=== PATIENT | male | born 1945 | race Caucasian/White ===

== ENCOUNTER 2022-03-28 04:28 | Inpatient (IN) ==
[2022-03-28] MEDS ORDERED: ONDANSETRON INJ 2 MG/ML 2 ML VIAL IV STA (04:45)
[2022-03-28] MEDS ORDERED: SODIUM CHLORIDE 0.9% 1000ML 1,000 ML IV SCH (04:45)
[2022-03-28] MEDS ORDERED: MoRPHine SULFATE 4 MG/ML 1 ML CARP\\VIAL IV PRN (05:17)
[2022-03-28 05:21] LABS: Basophils # (auto) 0.01 K/uL (0-0.2); Basophils % (auto) 0.1 %; Eosinophils # (auto) 0.01 K/uL (0-0.50); Eosinophils % (auto) 0.1 %; Hematocrit (blood only) 36.9 % (40.1-51.0); Hemoglobin 12.4 g/dl (14.0-18.0); Immature Granulocytes # (auto) 0.03 K/uL (0.00-0.02); Immature Granulocytes % (auto) 0.3 %; Lymphocytes # (auto) 0.74 K/uL (1.2-3.4); Lymphocytes % (auto) 7.7 %; Mean Corpuscular Hemoglobin 32.2 pg (25.0-34.0); Mean Corpuscular Hgb Conc 33.6 g/dL (32.0-36.0); Mean Corpuscular Volume 95.8 fL (80.0-100.0); Mean Platelet Volume 8.9 fL (9.4-12.4); Monocytes # (auto) 0.39 K/uL (0.24-0.82); Neutrophils # (auto) 8.45 K/uL (1.4-6.5); Neutrophils % (auto) 87.8 %; Platelet Count 229 K/uL (130-400); RDW Coefficient of Variation 13.3 % (11.5-14.5); RDW Standard Deviation 46.8 fL (36.4-46.3); Red Blood Count 3.85 M/uL (4.63-6.08); White Blood Count 9.63 K/ul (4.8-10.8)
--- NOTE | 2022-03-28 05:32 | Emergency Department Note ---
History of Present Illness General Chief complaint: Vomiting Stated complaint: NAUSEA,VOMITING,ABD PAIN Time Seen by Provider: 03/28/22 04:39 History of Present Illness Maximum Pain Intensity: 7 This is a 76-year-old male presenting to the emergency department for evaluation of nausea, vomiting, and abdominal pain. The patient is visiting locally for a high school reunion, and lives in [place]. The patient initially was planning to leave to go back home in a few hours, but has had 4 or 5 episodes of emesis. He has some central abdominal cramping. He does have a history of 2 abdominal hernias that were repaired surgically. No diarrhea. He does have a history of lung cancer and is not currently on radiation or chemotherapy. He rates his current discomfort a 7/10, dull, and nonradiating. He has not had fevers or chills. No other complaints. Home Medications Medication Instructions Recorded Confirmed Type celecoxib 100 mg capsule 100 mg PO DAILY 03/28/22 03/28/22 History esomeprazole magnesium 20 mg 20 mg PO DAILY 03/28/22 03/28/22 History capsule,delayed release (Nexium) hydrochlorothiazide 12.5 mg tablet 12.5 mg PO DAILY 03/28/22 03/28/22 History levothyroxine 25 mcg tablet 25 mcg PO DAILY 03/28/22 03/28/22 History mupirocin 2 % topical ointment 1 applic topical USEASDIRECTD PRN 03/28/22 03/28/22 History Outbreak nebivolol 10 mg tablet 10 mg PO DAILY 03/28/22 03/28/22 History olmesartan 40 mg tablet 40 mg PO DAILY 03/28/22 03/28/22 History Allergies Allergy/AdvReac Type Severity Reaction Status Date / Time No Known Allergies Allergy Unverified 03/28/22 07:51 Past Med/Surg History Medical History Lung cancer Port-A-Cath in place Surgical History S/P hernia surgery Social History Smoking Status: Never smoker Second Hand Exposure: No; Do You Dip or Chew Tobacco: No; Tobacco Cessation Education Requested by Patient: No Hx Alcohol Use: No Hx Substance Use: No Preferred Language: Czech Communication Ability: Effective 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 Beliefs That Will Affect Care: None Current Living Situation: Alone Other Information That Helps Us Care for You: No Feels Safe at Home: Yes Safety Concerns: Feels Safe At This Time Review of Systems A total of 10 systems reviewed and were otherwise negative Physical Exam Vital Signs Vital Signs - 24 hr 03/28/22 04:30 03/28/22 06:26 03/28/22 06:27 Temperature 36.7 C Temperature Source Temporal Artery Scan Pulse Rate 80 Pulse Rate [Finger] 64 Respiratory Rate 20 18 Respiratory Effort / Characteristics Non-Labored Spontaneous Non-Labored Spontaneous Respiratory Depth Normal Blood Pressure 124/83 Blood Pressure [Right Arm] 118/71 Blood Pressure Mean 96 Blood Pressure Mean [Right Arm] 86 Blood Pressure Position Sitting Blood Pressure Position [Right Arm] Pulse Oximetry 97 95 96 Oxygen Delivery Method Room Air Room Air Room Air Sepsis Recent Fever Within 48 Hours No Sepsis New/Unexplained Change in Mental Status N/A Sepsis Action Taken by Nursing No Action Required 03/28/22 08:20 Temperature Temperature Source Pulse Rate Pulse Rate [Finger] 77 Respiratory Rate 18 Respiratory Effort / Characteristics Respiratory Depth Blood Pressure Blood Pressure [Right Arm] 124/76 Blood Pressure Mean Blood Pressure Mean [Right Arm] 92 Blood Pressure Position Blood Pressure Position [Right Arm] Sitting Pulse Oximetry 98 Oxygen Delivery Method Room Air Sepsis Recent Fever Within 48 Hours Sepsis New/Unexplained Change in Mental Status Sepsis Action Taken by Nursing VITALS: Vitals are noted on the nurse's note and reviewed by myself. Vital signs stable. GENERAL: Well-developed, well-nourished, white male, who is mildly uncomfortable appearing but overall cooperative. HEAD: Normocephalic atraumatic. NECK: Supple without nuchal rigidity. No lymphadenopathy. No thyromegaly. C ervical spine is nontender. HEART: Regular rate and rhythm without murmurs gallops or rubs. LUNGS: Clear to auscultation bilaterally without wheezes, rales or rhonchi. No retractions or accessory muscle use. ABDOMEN: Positive normal bowel sounds x 4. Soft, nontender, without masses or organomegaly. No guarding or rebound tenderness. MUSCULOSKELETAL: No muscle atrophy, erythema, or edema noted. Full range of motion in all extremities. Course Administered Medications Enoxaparin Sodium (Enoxaparin Inj 40 Mg/0.4 Ml Syr) 40 mg SQ Q24H ASH Stop: 04/27/22 11:59 Last Admin: 03/28/22 12:42 Dose: 40 mg Documented By: CIPRIANO Lactated Ringer's (Lr) 1,000 mls @ 125 mls/hr IV .Q8H ASH Stop: 03/29/22 11:16 Last Admin: 03/28/22 20:59 Dose: 125 mls/hr Documented By: Infusion: 03/28/22 20:06 Dose: 125 mls/hr Documented By: Admin: 03/28/22 12:06 Dose: 125 mls/hr Documented By: UCHE Pantoprazole Sodium 40 mg/ (Syringe) 10 mls @ 5 mls/min IV DAILY@1100 [facility] Stop: 04/27/22 15:09 Last Admin: 03/28/22 17:14 Dose: 5 mls/min Documented By: JUSTIN Levothyroxine Sodium (Levothyroxine Sodium 25 Mcg Tablet) 25 mcg PO DAILY [facility] Stop: 04/27/22 11:16 Last Admin: 03/28/22 12:43 Dose: 25 mcg Documented By: CIPRIANO Morphine Sulfate (Morphine Sulfate 4 Mg/Ml 1 Ml Carp\Vial) 2 mg IV Q4H PRN PRN Reason: Severe Pain (7,8,9,10) on NRS Stop: 04/11/22 11:16 Last Admin: 03/28/22 13:58 Dose: 2 mg Documented By: UCHE Ondansetron HCl (Ondansetron Inj 2 Mg/Ml 2 Ml Vial) 4 mg IV Q6H PRN PRN Reason: Nausea Stop: 04/27/22 11:16 Last Admin: 03/28/22 20:03 Dose: 4 mg Documented By: Admin: 03/28/22 13:58 Dose: 4 mg Documented By: UCHE Discontinued Medications Sodium Chloride (Nss 1000ml) 1,000 mls @ 999 mls/hr IV .Q1H1M ASH Stop: 03/28/22 05:45 Last Infusion: 03/28/22 06:53 Dose: 0 mls/hr Documented By: Admin: 03/28/22 05:52 Dose: 999 mls/hr Documented By: SINDY Morphine Sulfate (Morphine Sulfate 4 Mg/Ml 1 Ml Carp\Vial) 4 mg IV Q30M PRN PRN Reason: Pain Stop: 04/11/22 05:16 Last Admin: 03/28/22 07:50 Dose: 4 mg Documented By: UCHE Morphine Sulfate (Morphine Sulfate 2 Mg/Ml Carp) Confirm Administered Dose 2 mg .ROUTE .STK-MED ONE Stop: 03/28/22 13:58 Last Admin: 03/28/22 19:35 Dose: Not Given Documented By: JENNIFER Ondansetron HCl (Ondansetron Inj 2 Mg/Ml 2 Ml Vial) 4 mg IV NOW STA Stop: 03/28/22 04:46 Last Admin: 03/28/22 05:51 Dose: 4 mg Documented By: SINDY Medical Decision Making Differential Diagnosis Differential diagnosis: Etiologies such as gastroenteritis, food borne illness, infections, appendicitis, diverticulitis, inflammatory bowel disease, obstruction, GI bleed, biliary pathology, cardiac process, intracranial process, as well as others were entertained. Laboratory Data Result diagrams: 03/28/22 05:10 03/28/22 05:10 Lab Results 03/28/22 03/28/22 03/28/22 Range/Units 05:10 05:10 06:13 WBC 9.63 (4.8-10.8) K/ul RBC 3.85 L (4.63-6.08) M/uL Hgb 12.4 L (14.0-18.0) g/dl Hct 36.9 L (40.1-51.0) % MCV 95.8 (80.0-100.0) fL MCH 32.2 (25.0-34.0) pg MCHC 33.6 (32.0-36.0) g/dL RDW Std Deviation 46.8 H (36.4-46.3) fL RDW Coeff of Arleth 13.3 (11.5-14.5) % Plt Count 229 (130-400) K/uL MPV 8.9 L (9.4-12.4) fL Immature Gran % (Auto) 0.3 % Neut % (Auto) 87.8 % Lymph % (Auto) 7.7 % Overton % (Auto) 4.0 % Eos % (Auto) 0.1 % Baso % (Auto) 0.1 % Neut # (Auto) 8.45 H (1.4-6.5) K/uL Lymph # (Auto) 0.74 L (1.2-3.4) K/uL Overton # (Auto) 0.39 (0.24-0.82) K/uL Eos # (Auto) 0.01 (0-0.50) K/uL Baso # (Auto) 0.01 (0-0.2) K/uL Immature Gran # (Auto) 0.03 H (0.00-0.02) K/uL Sodium 135 L (136-145) mmol/L Potassium 4.2 (3.5-5.1) mmol/L Chloride 98 (98-107) mmol/L Carbon Dioxide 29 (21-32) mmol/L Anion Gap 8 (3-11) BUN 27 H (6-23) mg/dl Creatinine 1.34 (0.6-1.4) mg/dl Est Cr Clr Drug Dosing 46.9 ml/min Est GFR ( Amer) 58.4 ml/min Est GFR (Non-Af Amer) 50.4 ml/min BUN/Creatinine Ratio 20.1 H (10-20) Glucose 126 H (70-99(Fasting)) mg/dl Calcium 9.4 (8.5-10.1) mg/dl Total Bilirubin 0.7 (0.2-1.0) mg/dl AST 20 (13-39) U/L ALT 13 (7-52) U/L Alkaline Phosphatase 71 (34-104) U/L Total Protein 6.6 (6.0-8.3) gm/dl Albumin 3.9 (3.4-5.0) gm/dl Globulin 2.7 (2.5-4.0) gm/dl Albumin/Globulin Ratio 1.4 (0.9-2) Lipase 51 (11-82) U/L SARS-CoV-2, RNA, NAAT NEGATIVE (NEGATIVE) Imaging Data Radiologist's Impression: Abdomen/Pelvis CT 03/28/22 04:45 CT abd pelvis wo con CLINICAL HISTORY: N/V/Abd pain. Hx lung ca. TECHNIQUE: Helical axial images of the abdomen and pelvis were obtained. Automated dose lowering techniques and/or adjustment according to patient size were utilized for this exam. This exam was performed without intravenous contrast. CT DOSE: 650.40 mGy.cm COMPARISON: None available at the time of this dictation. FINDINGS: Lower chest: Bibasilar atelectasis versus scarring is seen. Atherosclerotic disease is seen. Liver: Calcified granulomata are seen. Gallbladder and biliary tree: No calcified gallstones. Normal caliber wall. No intra- or extrahepatic biliary ductal dilation. Pancreas: Unremarkable, no focal lesions. Spleen: Calcifications are noted in the spleen compatible with prior granulomatous disease. Adrenals: Unremarkable. Kidneys and ureters: Unremarkable. Bladder: Unremarkable. Reproductive organs: Prostatic calcifications are seen which may represent prior hemorrhage or granulomatous disease. Bowel: Diverticulosis is seen without evidence of diverticulitis. Of stool contents remain. A hiatal hernia is seen. There are a few loops of dilated small bowel with wall thickening and surrounding fat stranding and vascular engorgement. Proximal and distal transition points are seen in the left lower quadrant and right lower quadrant, respectively, without a vascular swirl. The appendix is normal. Lymph nodes Retroperitoneal: Unremarkable. Pelvic: Unremarkable. Mesenteric: Unremarkable. Peritoneum: Normal. Vessels: Atherosclerotic calcifications are seen. Abdominal wall: A fat-containing umbilical hernia is seen. Metallic densities are seen throughout the abdomen. Bones: Degenerative changes in the visualized spine. IMPRESSION: Findings are compatible with small bowel obstruction. Bowel gas and some colonic gas remains. No evidence of perforation. Proximal and distal transition points are noted. ACT 112: Negative or not required by law. Electronically signed by: Wellington Pinzon M.D. 03/28/2022 7:32 AM MDM Narrative Physical exam and history were performed. Nursing notes, EMR, and Medication List were personally reviewed. Patient appears to have nausea and vomiting symptoms bringing him to the ER. The patient does have some generalized abdominal pain as well. IV access was established and labs were obtained. He was hydrated normal saline and given IV morphine and IV Zofran for comfort. Patient was taken to CT scan for further evaluation of symptoms. Patient's blood work is as above and was reviewed. He does not have a significantly elevated white blood cell count, gross anemia, bandemia, or significant electrolyte imbalance. Lipase and transaminases are not diagnostic. CT scan did return as above and does show a small bowel obstruction. NG tube was ordered. Patient was updated on his findings and does not seem well for discharge. I did reach out to the on-call surgical and hospitalist teams. Please see their dictations for further patient course, plan, disposition. The chart was completed utilizing Dragon Speech Voice Recognition Software. Grammatical errors, random word insertions, pronoun errors, and incomplete sentences are an occasional consequence of this system due to software limitations, ambient noise, and hardware issues. Any formal questions or concerns about the content, text, or information contained within the body of this dictation should be directly addressed to the provider for clarification. . Impression & Plan Small bowel obstruction, Nausea and vomiting Discharge Plan Visit Data Chief Complaint: Vomiting Stated Complaint: NAUSEA,VOMITING,ABD PAIN ED Provider: Chantale Hinton ED Midlevel Provider: Eliezer Castro Discharge Problem: Small bowel obstruction, Nausea and vomiting Patient Disposition: Admitted As Inpatient Discharge Instructions Interventions: ED Discharge Assessment Last Done: 03/28/22 11:16
[2022-03-28 05:48] LABS: Albumin Globulin Ratio 1.4 (0.9-2); Albumin Level 3.9 gm/dl (3.4-5.0); BUN Creatinine Ratio 20.1 (10-20); Bilirubin,Total 0.7 mg/dl (0.2-1.0); Calcium 9.4 mg/dl (8.5-10.1); Creatinine Clr Calc Pharmacy 46.9 ml/min; Est GFR (African American) 58.4 ml/min; Est GFR (Non-African American) 50.4 ml/min; Globulin 2.7 gm/dl (2.5-4.0); Potassium 4.2 mmol/L (3.5-5.1); Total Protein 6.6 gm/dl (6.0-8.3)
--- NOTE | 2022-03-28 07:34 | CT Scan Report ---
CT abd pelvis wo con CLINICAL HISTORY: N/V/Abd pain. Hx lung ca. TECHNIQUE: Helical axial images of the abdomen and pelvis were obtained. Automated dose lowering tech niques and/or adjustment according to patient size were utilized for this exam. This exam was perfor med without intravenous contrast. CT DOSE: 650.40 mGy.cm COMPARISON: None available at the time of this dictation. FINDINGS: Lower chest: Bibasilar atelectasis versus scarring is seen. Atherosclerotic disease is seen. Liver: Calcified granulomata are seen. Gallbladder and biliary tree: No calcified gallstones. Normal caliber wall. No intra- or extrahepatic biliary ductal dilation. Pancreas: Unremarkable, no focal lesions. Spleen: Calcifications are noted in the spleen compatible with prior granulomatous disease. Adrenals: Unremarkable. Kidneys and ureters: Unremarkable. Bladder: Unremarkable. Reproductive organs: Prostatic calcifications are seen which may represent prior hemorrhage or granul omatous disease. Bowel: Diverticulosis is seen without evidence of diverticulitis. Of stool contents remain. A hiatal hernia is seen. There are a few loops of dilated small bowel with wall thickening and surrounding fa t stranding and vascular engorgement. Proximal and distal transition points are seen in the left lowe r quadrant and right lower quadrant, respectively, without a vascular swirl. The appendix is normal. Lymph nodes Retroperitoneal: Unremarkable. Pelvic: Unremarkable. Mesenteric: Unremarkable. Peritoneum: Normal. Vessels: Atherosclerotic calcifications are seen. Abdominal wall: A fat-containing umbilical hernia is seen. Metallic densities are seen throughout the abdomen. Bones: Degenerative changes in the visualized spine. IMPRESSION: Findings are compatible with small bowel obstruction. Bowel gas and some colonic gas remains. No evid ence of perforation. Proximal and distal transition points are noted. ACT 112: Negative or not required by law. Electronically signed by: Wellington Pinzon M.D. 03/28/2022 7:32 AM
--- NOTE | 2022-03-28 08:42 | History & Physical Report ---
Date of Service March 28, 2022 Assessment & Plan (1) Small bowel obstruction: Plan: Eliezer is a 76-year-old male with a past medical history of metastatic melanoma with mets to lung undergoing monthly immunotherapy treatment with last treatment March 20 and no history of radiation who presents with 1 day of acute abdominal pain and CT indicating small bowel obstruction. He has a history of 2 prior abdominal hernia surgery repairs. No history of appendectomy or cholecystectomy. Symptoms are improved at bedside assessment with antiemetics and analgesics. Small bowel obstruction - Surgical history of 2 abdominal hernias repaired surgically. No hx of katrin/ap py. - CT-A/P: IMPRESSION: Findings are compatible with small bowel obstruction. Bowel gas and some colonic gas remains. No evidence of perforation. Proximal and distal transition points are noted. Insert NGT, placed to LIS N.p.o. Morphine, Zofran for pain and nausea control Follow clinically Surgery consulted, goal management for now Metastatic melanoma Mets to lung, patient undergoing targeted immunotherapy monthly. Last treatment March 20 Lungs clear on admission Reports he has been tolerating the immunotherapy well [place], records not currently available Follow, stable, no acute intervention anticipated Hypertension Nebivolol held while n.p.o., hydrochlorothiazide, olmesartan held while n.p.o. Metoprolol tartrate 5 mg IV every 6 hours as needed placed for beta-troy withdrawal/hypertension as needed Needs hydralazine 5 mg every 6 hours IV as needed as needed for additional hypertension, second line to initial metoprolol dose GERD Hold Nexium Metoprolol IV daily while n.p.o. Hypothyroidism Recent since radiation, but reports suspected side effect of his immunotherapy Hold Synthroid, if p.o. not improving within 72 hours resume at 70% dose via IV TSH pending DVT prophylaxis: Lovenox Disposition: Medical surgical Diet: N.p.o. CODE STATUS: Surrogate DM would be Son Shaan Decker. [phone]. Full Code. (2) Total knee replacement status: (3) Lung metastases: (4) Melanoma: (5) Port-A-Cath in place: (6) Lung cancer: History of Present Illness Primary Care Provider: NO PCP Eliezer is a 76-year-old male with a past medical history of lung cancer who presented to the emergency department for nausea/vomiting/abdominal pain. He lives in [place], was visiting locally for a high school reunion. Developed repeated episodes of pain and nonbloody emesis without diarrhea, and presented for evaluation. Is found to have a bowel obstruction. 2pm yesterday ab pain which progressively worsened overnight. THis am started vomiting several times, light yellow no blood. Maybe a little pink with last wretching. Pain is improved with morphine. Pain in the worse in the central abdomen, no history of SBO or similar symptoms. 3/10 now, 7-8/10 and sharp coming in. No flatus, feels like he wants to pass gas but cant and stomach is stretched but nothing is moving. 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 Started immunotherapy avivo last June. Last treatment was March 20-. Gets monthly. No radiation hx. Hx HTN, hypothyroid, GERD Surgical history of 2 abdominal hernias repaired surgically. Knee R TKA. L Foot surgery. Laminectomy 1994 for back pain, worked well. No hx of katrin/appy. CT-A/P: IMPRESSION: Findings are compatible with small bowel obstruction. Bowel gas and some colonic gas remains. No evidence of perforation. Proximal and distal transition points are noted. Medical History: Reviewed Medications: Reviewed. HTN Surgical History: Reviewed Allergies: Reviewed. NKDA Social History: Hx cigarette use 45 years ago. EtoH 2-3 days a week, 1-2 in a sitting. No MM. Code Status: Surrogate DM would be Son Shaan Decker. [phone]. Full Code. Allergies Allergy/AdvReac Type Severity Reaction Status Date / Time No Known Allergies Allergy Unverified 03/28/22 07:51 Home Medications Medication Instructions Recorded Confirmed Type celecoxib 100 mg capsule 100 mg PO DAILY 03/28/22 03/28/22 History esomeprazole magnesium 20 mg 20 mg PO DAILY 03/28/22 03/28/22 History capsule,delayed release (Nexium) hydrochlorothiazide 12.5 mg tablet 12.5 mg PO DAILY 03/28/22 03/28/22 History levothyroxine 25 mcg tablet 25 mcg PO DAILY 03/28/22 03/28/22 History mupirocin 2 % topical ointment 1 applic topical USEASDIRECTD PRN 03/28/22 03/28/22 History Outbreak nebivolol 10 mg tablet 10 mg PO DAILY 03/28/22 03/28/22 History olmesartan 40 mg tablet 40 mg PO DAILY 03/28/22 03/28/22 History Past Med/Surg History Medical History Lung cancer Port-A-Cath in place Surgical History S/P hernia surgery Social History Smoking Status: Never smoker Second Hand Exposure: No; Do You Dip or Chew Tobacco: No; Tobacco Cessation Education Requested by Patient: No Hx Alcohol Use: No Hx Substance Use: No Preferred Language: Nigerian Communication Ability: Effective Medical Laboratory Assistant Required: No Beliefs That Will Affect Care: None Current Living Situation: Alone Other Information That Helps Us Care for You: No Feels Safe at Home: Yes Safety Concerns: Feels Safe At This Time Review of Systems Review of Systems: All systems reviewed & are unremarkable except as noted in Subjective Physical Exam Physical Exam: General: A&Ox3. NAD. Cooperative. HEENT: Atraumatic, normocephalic. Vision and hearing intact grossly. Pupils equal and reactive to light. Pulm: CTAB A&P. -wheezes, -rales, -rhonchi. Symmetrical chest rise. No increase in work of breathing. No respiratory distress. Cardiac: RRR, systolic murmur is present. Radial pulses intact and symmetrical. Abdominal: Abdomen mildly tender in the center, slightly tender in left center. No radiation, no rebound, nonrigid. Bowel sounds diminished. Results & Data Results & Data ([facility]) Vital Signs (Past 12 Hours) Vital Signs Temp Pulse Pulse Resp BP BP Pulse Ox 03/28/22 06:27 96 03/28/22 06:26 64 18 118/71 95 03/28/22 04:30 36.7 C 80 20 124/83 97 O2 Del Method 03/28/22 06:27 Room Air 03/28/22 06:26 Room Air 03/28/22 04:30 Room Air PG Care Time/CCT Total # of Minutes Spent Total Time Spent with Patient: Total time spent is greater than 50% in coordination of care (as documented) at patient's floor/unit and/or counseling patient: Coding Level of Care Code 74671 Initial Inpt Care Lvl 2 Diagnoses Small bowel obstruction K56.609 Total knee replacement status Z96.659 Lung metastases C78.00 Melanoma C43.9 Port-A-Cath in place Z95.828 Lung cancer C34.90
[2022-03-28] MEDS ORDERED: METOPROLOL TARTRATE 1 MG/ML VIAL IV PRN (11:17)
[2022-03-28] MEDS ORDERED: MoRPHine SULFATE 2 MG/ML CARP IV PRN (11:17)
[2022-03-28] MEDS: LACTATED RINGER'S 1,000 ML IV SCH ×2 (12:06→20:59)
--- NOTE | 2022-03-28 12:22 | Surgery Consultation ---
Date of Consultation March 28, 2022 Assessment & Plan (1) Small bowel obstruction: pt is a 76 year-old male who presents with one day history abdominal pain, IMP: SBO, Plan, agree with medicine team admit pt to hospital no emergent surgery indication now, conservative treatment, NPO, IV fluid, control pain, repeat labs and KUB in morning, will F/U, pt agrees with the plan, I answered all questions, History of Present Illness Reason for Consultation: SBO Requesting Physician: MD Leeanna Attending Physician: Lloyd Ji MD History of Present Illness CC: abdominal pain HPI: Eliezer is a 76-year-old male with a past medical history of lung cancer who presented to the emergency department for nausea/vomiting/abdominal pain. He lives in [place], was visiting locally for a high school reunion. Developed repeated episodes of pain and nonbloody emesis without diarrhea, and presented for evaluation. Is found to have a bowel obstruction. 2pm yesterday ab pain which progressively worsened overnight. THis am started vomiting several times, light yellow no blood. Maybe a little pink with last wretching. Pain is improved with morphine. Pain in the worse in the central abdomen, no history of SBO or similar symptoms. 3/10 now, 7-8/10 and sharp coming in. No flatus, feels like he wants to pass gas but cant and stomach is stretched but nothing is moving. 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 Started immunotherapy avivo last June. Last treatment was March 20-. Gets monthly. No radiation hx. Hx HTN, hypothyroid, GERD Surgical history of 2 abdominal hernias repaired surgically. Knee R TKA. L Foot surgery. Laminectomy 1994 for back pain, worked well. No hx of katrin/appy. CT-A/P: IMPRESSION: Findings are compatible with small bowel obstruction. Bowel gas and some colonic gas remains. No evidence of perforation. Proximal and distal transition points are noted. Medical History: Reviewed Medications: Reviewed. HTN Surgical History: Reviewed Allergies: Reviewed. NKDA Social History: Hx cigarette use 45 years ago. EtoH 2-3 days a week, 1-2 in a sitting. No MM. Code Status: Surrogate DM would be Son Shaan Decker. [phone]. Full Code. I ( Malick Leung MD ) got a call for consult SBO, I reviewed pt's H/P, labs, CT scan with pt, last BM yesterday, Allergies Allergy/AdvReac Type Severity Reaction Status Date / Time No Known Allergies Allergy Unverified 03/28/22 07:51 Home Medications Medication Instructions Recorded Confirmed Type celecoxib 100 mg capsule 100 mg PO DAILY 03/28/22 03/28/22 Histor y esomeprazole magnesium 20 mg 20 mg PO DAILY 03/28/22 03/28/22 Hi story capsule,delayed release (Nexium) hydrochlorothiazide 12.5 mg tablet 12.5 mg PO DAILY 03/28/2203/28 History levothyroxine 25 mcg tablet 25 mcg PO DAILY 03/28/22 03/28/22 His tory mupirocin 2 % topical ointment 1 applic topical USEASDIRECTD PRN 03/28/22 03/28/22 History Outbreak nebivolol 10 mg tablet 10 mg PO DAILY 03/28/22 03/28/22 History olmesartan 40 mg tablet 40 mg PO DAILY 03/28/22 03/28/22 History Past Med/Surg History Medical History(Updated 03/28/22 @ 08:53 by Lloyd Ji MD) Lung cancer Port-A-Cath in place Surgical History S/P hernia surgery Social History Smoking Status: Former smoker Feels Safe at Home: Yes Allergies Allergy/AdvReac Type Severity Reaction Status Date / Time No Known Allergies Allergy Unverified 03/28/22 07:51 Home Medications Medication Instructions Recorded Confirmed Type celecoxib 100 mg capsule 100 mg PO DAILY 03/28/22 03/28/22 History esomeprazole magnesium 20 mg 20 mg PO DAILY 03/28/22 03/28/22 History capsule,delayed release (Nexium) hydrochlorothiazide 12.5 mg tablet 12.5 mg PO DAILY 03/28/22 03/28/22 History levothyroxine 25 mcg tablet 25 mcg PO DAILY 03/28/22 03/28/22 History mupirocin 2 % topical ointment 1 applic topical USEASDIRECTD PRN 03/28/22 03/28/22 History Outbreak nebivolol 10 mg tablet 10 mg PO DAILY 03/28/22 03/28/22 History olmesartan 40 mg tablet 40 mg PO DAILY 03/28/22 03/28/22 History Patient History Medical History Lung cancer Port-A-Cath in place Surgical History S/P hernia surgery Social History Smoking Status: Never smoker Second Hand Exposure: No; Do You Dip or Chew Tobacco: No; Tobacco Cessation Education Requested by Patient: No Hx Alcohol Use: No Hx Substance Use: No Preferred Language: Welsh Communication Ability: Effective 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: No Beliefs That Will Affect Care: None Current Living Situation: Alone Other Information That Helps Us Care for You: No Feels Safe at Home: Yes Safety Concerns: Feels Safe At This Time Review of Systems Constitutional: as per Subjective / HPI Eyes: as per Subjective / HPI Respiratory: as per Subjective / HPI lung cancer Cardiovascular: as per Subjective / HPI Gastrointestinal: laparoscopic repair bilateral inguinal hernia, 2 years ago Musculoskeletal: as per Subjective / HPI Neurologic: as per Subjective / HPI Psychiatric: as per Subjective / HPI Endocrine: as per Subjective / HPI Hematologic / Lymphatic: as per Subjective / HPI Physical Exam Constitutional: WD/WN, vitals as above Eyes: PERRL, conjunctivae normal, anicteric sclerae Neck: trachea midline, no thyromegaly Respiratory: normal respiratory effort, lungs clear to auscultation Cardiovascular: RRR, no murmur, no edema Gastrointestinal (Abdomen): soft, mild tenderness at lower abdomen, no rebound pain, no distend, BS + Musculoskeletal: no cyanosis or clubbing, extremities motor strength 5/5 Neurologic: patellar DTR's 2+ bilat, sensation intact Psychiatric: A+Ox3, euthymic affect Results & Data ([facility]) Vital Signs (Past 12 Hours) Vital Signs Temp Pulse Pulse Resp BP BP Pulse Ox 03/28/22 11:34 36.5 C 61 15 115/70 96 03/28/22 11:00 77 18 115/76 98 03/28/22 10:00 88 20 122/76 98 08/09/22 08:20 77 18 124/76 98 03/28/22 06:27 96 03/28/22 06:26 64 18 118/71 95 03/28/22 04:30 36.7 C 80 20 124/83 97 O2 Del Method 03/28/22 11:34 Room Air 03/28/22 11:00 Room Air 03/28/22 10:00 Room Air 03/28/22 08:20 Room Air 03/28/22 06:27 Room Air 03/28/22 06:26 Room Air 03/28/22 04:30 Room Air Laboratory Results Abnormal lab results 03/28/22 03/28/22 Range/Units 05:10 05:10 RBC 3.85 L (4.63-6.08) M/uL Hgb 12.4 L (14.0-18.0) g/dl Hct 36.9 L (40.1-51.0) % RDW Std Deviation 46.8 H (36.4-46.3) fL MPV 8.9 L (9.4-12.4) fL Neut # (Auto) 8.45 H (1.4-6.5) K/uL Lymph # (Auto) 0.74 L (1.2-3.4) K/uL Immature Gran # (Auto) 0.03 H (0.00-0.02) K/uL Sodium 135 L (136-145) mmol/L BUN 27 H (6-23) mg/dl BUN/Creatinine Ratio 20.1 H (10-20) Glucose 126 H (70-99(Fasting)) mg/dl Diagnostic Findings CT abd pelvis wo con CLINICAL HISTORY: N/V/Abd pain. Hx lung ca. TECHNIQUE: Helical axial images of the abdomen and pelvis were obtained. Automated dose lowering techniques and/or adjustment according to patient size were utilized for this exam. This exam was performed without intravenous contrast. CT DOSE: 650.40 mGy.cm COMPARISON: None available at the time of this dictation. FINDINGS: Lower chest: Bibasilar atelectasis versus scarring is seen. Atherosclerotic disease is seen. Liver: Calcified granulomata are seen. Gallbladder and biliary tree: No calcified gallstones. Normal caliber wall. No intra- or extrahepatic biliary ductal dilation. Pancreas: Unremarkable, no focal lesions. Spleen: Calcifications are noted in the spleen compatible with prior granulomato us disease. Adrenals: Unremarkable. Kidneys and ureters: Unremarkable. Bladder: Unremarkable. Reproductive organs: Prostatic calcifications are seen which may represent prior hemorrhage or granulomatous disease. Bowel: Diverticulosis is seen without evidence of diverticulitis. Of stool contents remain. A hiatal hernia is seen. There are a few loops of dilated small bowel with wall thickening and surrounding fat stranding and vascular engorgement. Proximal and distal transition points are seen in the left lower quadrant and right lower quadrant, respectively, without a vascular swirl. The appendix is normal. Lymph nodes Retroperitoneal: Unremarkable. Pelvic: Unremarkable. Mesenteric: Unremarkable. Peritoneum: Normal. Vessels: Atherosclerotic calcifications are seen. Abdominal wall: A fat-containing umbilical hernia is seen. Metallic densities are seen throughout the abdomen. Bones: Degenerative changes in the visualized spine. IMPRESSION: Findings are compatible with small bowel obstruction. Bowel gas and some colonic gas remains. No evidence of perforation. Proximal and distal transition points are noted. ACT 112: Negative or not required by law.
[2022-03-28] MEDS: ENOXAPARIN INJ 40 MG/0.4 ML SYR SQ SCH (12:42)
[2022-03-28] MEDS: LEVOTHYROXINE SODIUM 25 MCG TABLET PO SCH (12:43)
[2022-03-28] MEDS ORDERED: MoRPHine SULFATE 2 MG/ML CARP ONE (13:57)
[2022-03-28] MEDS: ONDANSETRON INJ 2 MG/ML 2 ML VIAL IV PRN ×2 (13:58→20:03)
[2022-03-28] MEDS: MoRPHine SULFATE 4 MG/ML 1 ML CARP\\VIAL IV PRN (13:58)
[2022-03-28] MEDS ORDERED: hydrALAZINE HCL 20 MG/ML VIAL IV PRN (15:06)
--- NOTE | 2022-03-28 16:20 | XRay Report ---
XR KUB/Abdomen 1 view CLINICAL HISTORY: NGT PLACEMENT BEDSIDE. COMPARISON STUDY: No previous studies for comparison. TECHNIQUE: Single view of the chest and upper abdomen. FINDINGS: The bowel gas pattern is within normal limits without evidence for dilatation or obstruction. NG tube is in place with its tip extending just past the GE junction and into the gastric fundus. It should be further advanced. There is no evidence for organomegaly or gross intra-abdominal mass. No abnormal calcifications are seen along the course of the urinary tracts bilaterally. No acute osseous patholo gy. There is a decreased inspiratory effort with elevation of the hemidiaphragms and crowding of the bron chovascular markings at the lung bases and centrally. IMPRESSION: 1. No acute intra-abdominal abnormality. 2. Status post NG tube placement as described. ACT 112: Negative or not required by law. Electronically signed by: Solomon Toledo M.D. 03/28/2022 4:18 PM
--- NOTE | 2022-03-28 16:57 | XRay Report ---
XR KUB/Abdomen 1 view CLINICAL HISTORY: NGT placement confirmation. COMPARISON STUDY: 03/28/2022 TECHNIQUE: Single view of the upper abdomen abdomen. FINDINGS: The bowel gas pattern is within normal limits without evidence for dilatation or obstruction. There a re air-filled loops of small bowel present. NG tube has been advanced so that its tip is now curled w ithin the upper body of the stomach. There is no evidence for organomegaly or gross intra-abdominal m ass. No abnormal calcifications are seen along the course of the urinary tracts bilaterally. No acute osseous pathology. IMPRESSION: 1. Air-filled loops of small bowel throughout the abdomen. 2. Advancement of NG tube. ACT 112: Negative or not required by law. Electronically signed by: Solomon Toledo M.D. 03/28/2022 4:55 PM
[2022-03-28] MEDS: PANTOprazole 40 MG in SYRINGE 0 ML IV SCH (17:14)
[2022-03-28 19:11] LABS: Appearance Urine Clear (Clear); Bilirubin Urine Negative (Negative); Blood Urine Negative (Negative); Color Urine Yellow; Glucose Urine UA Negative (Negative); Ketones Urine Negative (Negative); Leukocyte Esterase Urine Negative (Negative); Nitrite Urine Negative (Negative); Protein Urine Negative (Negative); Specific Gravity Urine 1.022 (1.000-1.030); Urobilinogen Urine Negative (Negative)
[2022-03-29] MEDS ORDERED: CHLORASEPTIC 1.4% SOLN 180 ML BTL MT PRN (04:41)
[2022-03-29] MEDS: LACTATED RINGER'S 1,000 ML IV SCH ×2 (05:13→17:35)
--- NOTE | 2022-03-29 06:00 | Electrocardiogram Report ---
Test Reason : Blood Pressure : / mmHG Vent. Rate : 060 BPM Atrial Rate : 060 BPM P-R Int : 198 ms QRS Dur : 094 ms QT Int : 416 ms P-R-T Axes : 045 006 032 degrees QTc Int : 416 ms Normal sinus rhythm Cannot rule out Anterior infarct , age undetermined Abnormal ECG No previous ECGs available Confirmed by Ko Dalton ([id number]) on 03/29/2022 6:00:03 AM Referred By: REFERRED SELF Confirmed By:Ko Dalton
[2022-03-29] MEDS: ONDANSETRON INJ 2 MG/ML 2 ML VIAL IV PRN (07:36)
[2022-03-29] MEDS: LEVOTHYROXINE SODIUM 25 MCG TABLET PO SCH (07:37)
--- NOTE | 2022-03-29 10:13 | Hospitalist Progress Note ---
Date of Service March 29, 2022 Assessment & Plan (1) Small bowel obstruction: Plan: Eliezer is a 76-year-old male with a past medical history of metastatic melanoma with mets to lung undergoing monthly immunotherapy treatment with last treatment March 20 and no history of radiation who presents with 1 day of acute abdominal pain and CT indicating small bowel obstruction. He has a history of 2 prior abdominal hernia surgery repairs. No history of appendectomy or cholecystectomy. Symptoms are improved at bedside assessment with antiemetics and analgesics. Small bowel obstruction - Surgical history of 2 abdominal hernias repaired surgically. No hx of katrin/a ppy. - CT-A/P: IMPRESSION: Findings are compatible with small bowel obstruction. Bowel gas and some colonic gas remains. No evidence of perforation. Proximal and distal transition points are noted. Continue NG tube to low remittent suction N.p.o. Labs are stable at this time surgery is not planning any intervention procedure check KUB on 03/30/2022 Metastatic melanoma Mets to lung, patient undergoing targeted immunotherapy monthly. Last treatment March 20 Lungs clear on admission Reports he has been tolerating the immunotherapy well [place], [place] not currently [place] Follow, stable, no acute intervention anticipated Hypertension Nebivolol held while n.p.o., hydrochlorothiazide, olmesartan held while n.p.o. Metoprolol tartrate 5 mg IV every 6 hours as needed placed for beta-troy withdrawal/hypertension as needed Needs hydralazine 5 mg every 6 hours IV as needed as needed for additional hypertension, second line to initial metoprolol dose GERD Hold Nexium Metoprolol IV daily while n.p.o. Hypothyroidism Recent since radiation, but reports suspected side effect of his immunotherapy Hold Synthroid, if p.o. not improving within 72 hours resume at 70% dose via IV TSH pending DVT prophylaxis: Lovenox Diet: N.p.o. CODE STATUS: Surrogate DM would be Son Shaan Decker. [phone]. Full Code. Son was updated on the phone 03/29/2022 (2) Total knee replacement status: (3) Lung metastases: (4) Melanoma: (5) Port-A-Cath in place: (6) Lung cancer: Admission and Anticipated Discharge Date Admission Date: March 28, 2022 Subjective Patient states she is doing terrible has crescendo decrescendo abdominal pain and is bothered by his NG tube. He said no nausea or vomiting said no flatus or bowel movement Review of Systems Review of Systems: Mild distress and fatigue no headache, no visual changes no speech or swallowing issues no chest pain, pressure or palpitations no shortness of breath, cough or wheezes Crescendo decrescendo abdominal pain centrally in the abdomen no bowel movement present no vomiting no dysuria, hematuria or frequency no focal joint pain or swelling no back pain, CVA tenderness or radicular pain no bruising, bleeding or rashes no focal signs of weakness or numbness or altered sensation no complaints of anxiety or depression.. Physical Exam Physical Exam: The patient appeared well nourished and normally developed. Vital signs as documented. Head exam is normocephalic atraumatic Neck is without JVD, thyromegaly, or carotid bruits. Lungs are clear to auscultation, no focal loss of breath sounds Cardiac exam, Rhythm is regular.. No murmurs, rubs or gallops. Abdominal exam reveals hyperactive bowel sounds but no tinkling no distention or tympany. does have discomfort to examination Extremities are nonedematous and both pedal pulses are present Neurologic exam is alert and oriented, no focal loss of strength or sensation Skin is without bruises or rashes Psychologically is without concerns for anxiety or depression.. Results & Data Results & Data ([facility]) Vital Signs (Past 12 Hours) Vital Signs Temp Pulse Pulse Resp BP Pulse Ox Pulse Ox 03/29/22 08:02 98.1 F 68 20 113/74 90 03/29/22 06:32 98.8 F 71 18 106/72 91 03/29/22 06:00 96 03/28/22 22:37 98.2 F 70 18 113/75 91 O2 Del Method O2 Del Method 03/29/22 08:02 Room Air 03/29/22 06:32 Room Air 03/29/22 06:00 Room Air 03/28/22 22:37 Room Air PG Care Time/CCT Total # of Minutes Spent Total Time Spent with Patient: Total time spent is greater than 50% in coordination of care (as documented) at patient's floor/unit and/or counseling patient: Coding Level of Care Code 09549 Subseq Hosp Care Lvl 3 Diagnoses Small bowel obstruction K56.609 Total knee replacement status Z96.659 Lung metastases C78.00 Melanoma C43.9 Port-A-Cath in place Z95.828 Lung cancer C34.90
[2022-03-29] MEDS: PANTOprazole 40 MG in SYRINGE 0 ML IV SCH (11:14)
[2022-03-29] MEDS: ENOXAPARIN INJ 40 MG/0.4 ML SYR SQ SCH (11:15)
[2022-03-29 13:06] LABS: Basophils # (auto) 0.01 K/uL (0-0.2); Basophils % (auto) 0.1 %; Eosinophils # (auto) 0.07 K/uL (0-0.50); Eosinophils % (auto) 0.7 %; Hemoglobin 12.1 g/dl (14.0-18.0); Immature Granulocytes # (auto) 0.04 K/uL (0.00-0.02); Immature Granulocytes % (auto) 0.4 %; Lymphocytes # (auto) 0.88 K/uL (1.2-3.4); Lymphocytes % (auto) 8.9 %; Mean Corpuscular Hemoglobin 32.4 pg (25.0-34.0); Mean Corpuscular Hgb Conc 33.6 g/dL (32.0-36.0); Mean Corpuscular Volume 96.3 fL (80.0-100.0); Mean Platelet Volume 9.3 fL (9.4-12.4); Monocytes # (auto) 0.69 K/uL (0.24-0.82); Monocytes % (auto) 6.9 %; Neutrophils # (auto) 8.24 K/uL (1.4-6.5); Platelet Count 229 K/uL (130-400); RDW Coefficient of Variation 13.4 % (11.5-14.5); RDW Standard Deviation 47.8 fL (36.4-46.3); Red Blood Count 3.74 M/uL (4.63-6.08); White Blood Count 9.93 K/ul (4.8-10.8)
[2022-03-29] MEDS ORDERED: HEPARIN 100 UNIT/ML 5ML FLUSH ONE (13:21)
[2022-03-29] MEDS ORDERED: HEPARIN 100 UNIT/ML 5ML FLUSH FLUSH PRN (13:25)
[2022-03-29 13:28] LABS: BUN Creatinine Ratio 16.8 (10-20); Calcium 8.9 mg/dl (8.5-10.1); Est GFR (Non-African American) 51.8 ml/min; Potassium 4.2 mmol/L (3.5-5.1)
[2022-03-29 13:47] LABS: Thyroid Stimulating Hormone 10.632 uIu/ml (0.300-4.500)
[2022-03-29 14:19] LABS: T4 Free Thyroxine 0.75 ng/dl (0.61-1.60)
--- NOTE | 2022-03-29 17:19 | XRay Report ---
XR KUB/Abdomen 1 view CLINICAL HISTORY: Eval progression of SBO. COMPARISON STUDY: 03/28/2022 TECHNIQUE: 2 supine views of the abdomen FINDINGS: Compared to the previous examination, there is increased gaseous distention of numerous loops of smal l bowel suspicious for partial small bowel obstruction. However, there is air seen within the left si de of the colon and rectum. There is no evidence for organomegaly or gross intra-abdominal mass. No a bnormal calcifications are seen along the course of the urinary tracts bilaterally. No acute osseous pathology. Degenerative changes are present within the spine. NG tube tip is again seen within the ga stric fundus. IMPRESSION: 1. Increased gaseous distention of small bowel loops suspicious for partial small bowel obstruction. 2. However, there is air seen within the left-sided colon and rectum. ACT 112: Negative or not required by law. Electronically signed by: Solomon Toledo M.D. 03/29/2022 5:17 PM
--- NOTE | 2022-03-29 19:11 | Surgery Progress Note ---
Date of Service March 29, 2022 Assessment & Plan (1) Small bowel obstruction: Plan: pt is a 76 year-old male who presents with one day history abdominal pain, IMP: SBO, Plan, agree with medicine team admit pt to hospital no emergent surgery indication now, conservative treatment, NPO, IV fluid, control pain, repeat labs and KUB in morning, will F/U, pt agrees with the plan, I answered all questions, 7: 13PM, F/U SBO, pt is stable, no abdominal pain, continue treatment, will F/U, Admission and Anticipated Discharge Date Admission Date: March 28, 2022 Subjective F/U SBO, passed some gas, no abdominal pain, NG tube-550ml Review of Systems Constitutional: as per Subjective / HPI Eyes: as per Subjective / HPI Respiratory: as per Subjective / HPI lung cancer Cardiovascular: as per Subjective / HPI Gastrointestinal: laparoscopic repair bilateral inguinal hernia, 2 years ago Musculoskeletal: as per Subjective / HPI Neurologic: as per Subjective / HPI Psychiatric: as per Subjective / HPI Endocrine: as per Subjective / HPI Hematologic / Lymphatic: as per Subjective / HPI Physical Exam Constitutional: WD/WN, vitals as above Eyes: PERRL, conjunctivae normal, anicteric sclerae Neck: trachea midline, no thyromegaly Respiratory: normal respiratory effort, lungs clear to auscultation Cardiovascular: RRR, no murmur, no edema Gastrointestinal (Abdomen): soft, NT, Nd, BS + Musculoskeletal: no cyanosis or clubbing, extremities motor strength 5/5 Neurologic: patellar DTR's 2+ bilat, sensation intact Psychiatric: A+Ox3, euthymic affect Results & Data ([facility]) Vital Signs (Past 12 Hours) Vital Signs Temp Pulse Pulse Resp BP Pulse Ox O2 Del Method 03/29/22 14:56 36.9 C 88 12 137/90 92 Room Air 03/29/22 11:43 36.5 C 75 18 126/80 91 Room Air 03/29/22 08:02 36.7 C 68 20 113/74 90 Room Air Laboratory Results Abnormal lab results 03/29/22 03/29/22 03/29/22 Range/Units 12:34 12:34 12:34 RBC 3.74 L (4.63-6.08) M/uL Hgb 12.1 L (14.0-18.0) g/dl Hct 36.0 L (40.1-51.0) % RDW Std Deviation 47.8 H (36.4-46.3) fL MPV 9.3 L (9.4-12.4) fL Neut # (Auto) 8.24 H (1.4-6.5) K/uL Lymph # (Auto) 0.88 L (1.2-3.4) K/uL Immature Gran # (Auto) 0.04 H (0.00-0.02) K/uL Sodium 135 L (136-145) mmol/L TSH 10.632 H (0.300-4.500) uIu/ml Diagnostic Findings XR KUB/Abdomen 1 view CLINICAL HISTORY: Eval progression of SBO. COMPARISON STUDY: 03/28/2022 TECHNIQUE: 2 supine views of the abdomen FINDINGS: Compared to the previous examination, there is increased gaseous distention of numerous loops of small bowel suspicious for partial small bowel obstruction. However, there is air seen within the left side of the colon and rectum. There is no evidence for organomegaly or gross intra-abdominal mass. No abnormal calcifications are seen along the course of the urinary tracts bilaterally. No acute osseous pathology. Degenerative changes are present within the spine. NG tube tip is again seen within the gastric fundus. IMPRESSION: 1. Increased gaseous distention of small bowel loops suspicious for partial small bowel obstruction. 2. However, there is air seen within the left-sided colon and rectum. ACT 112: Negative or not required by law.
[2022-03-30] MEDS: LACTATED RINGER'S 1,000 ML IV SCH ×3 (03:08→23:18)
--- NOTE | 2022-03-30 05:31 | Hospitalist Progress Note ---
Date of Service March 30, 2022 Assessment & Plan (1) Small bowel obstruction: Plan: Eliezer is a 76-year-old male with a past medical history of metastatic melanoma with mets to lung undergoing monthly immunotherapy treatment with last treatment March 20 and no history of radiation who presents with 1 day of acute abdominal pain and CT indicating small bowel obstruction. He has a history of 2 prior abdominal hernia surgery repairs. No history of appendectomy or cholecystectomy. Symptoms are improved at bedside assessment with antiemetics and analgesics. Small bowel obstruction - Surgical history of 2 abdominal hernias repaired surgically. No hx of katrin/a ppy. - CT-A/P: IMPRESSION: Findings are compatible with small bowel obstruction. Bowel gas and some colonic gas remains. No evidence of perforation. Proximal and distal transition points are noted. Continue NG tube to low remittent suction N.p.o. Pending KUB on 03/30/2022 Metastatic melanoma Mets to lung, patient undergoing targeted immunotherapy monthly. Last treatment March 20 Lungs clear on admission Reports he has been tolerating the immunotherapy well Is from [place], [place], records not currently available Follow, stable, no acute intervention anticipated Hypertension Nebivolol held while n.p.o., hydrochlorothiazide, olmesartan held while n.p.o. Metoprolol tartrate 5 mg IV every 6 hours as needed placed for beta-troy withdrawal/hypertension as needed Needs hydralazine 5 mg every 6 hours IV as needed as needed for additional hypertension, second line to initial metoprolol dose GERD Hold Nexium Metoprolol IV daily while n.p.o. Hypothyroidism Recent since radiation, but reports suspected side effect of his immunotherapy Hold Synthroid, if p.o. not improving within 72 hours resume at 70% dose via IV TSH pending DVT prophylaxis: Lovenox Diet: N.p.o. CODE STATUS: Surrogate DM would be Son Shaan Decker. [phone]. Full Code. Son was updated on the phone 03/29/2022 (2) Total knee replacement status: (3) Lung metastases: (4) Melanoma: (5) Port-A-Cath in place: (6) Lung cancer: Admission and Anticipated Discharge Date Admission Date: March 28, 2022 Subjective Patient's had fever to 100.9 F overnight continues with crescendo decrescendo abdominal pain and no flatus pending KUB for the morning Review of Systems Review of Systems: Mild distress and fatigue no headache, no visual changes no speech or swallowing issues no chest pain, pressure or palpitations no shortness of breath, cough or wheezes Crescendo decrescendo abdominal pain centrally in the abdomen no bowel movement present no vomiting no dysuria, hematuria or frequency no focal joint pain or swelling no back pain, CVA tenderness or radicular pain no bruising, bleeding or rashes no focal signs of weakness or numbness or altered sensation no complaints of anxiety or depression.. Physical Exam Physical Exam: The patient appeared well nourished and normally developed. Vital signs as documented. Head exam is normocephalic atraumatic Neck is without JVD, thyromegaly, or carotid bruits. Lungs are clear to auscultation, no focal loss of breath sounds Cardiac exam, Rhythm is regular.. No murmurs, rubs or gallops. Abdominal exam reveals hyperactive bowel sounds but no tinkling no distention or tympany. does have discomfort to examination Extremities are nonedematous and both pedal pulses are present Neurologic exam is alert and oriented, no focal loss of strength or sensation Skin is without bruises or rashes Psychologically is without concerns for anxiety or depression.. Results & Data Results & Data ([facility]) Vital Signs (Past 12 Hours) Vital Signs Temp Pulse Resp BP Pulse Ox O2 Del Method 03/29/22 22:44 100.9 F H 92 H 18 120/78 91 Room Air PG Care Time/CCT Total # of Minutes Spent Total Time Spent with Patient: Total time spent is greater than 50% in coordination of care (as documented) at patient's floor/unit and/or counseling patient: Coding Level of Care Code 26416 Subseq Hosp Care Lvl 2 Diagnoses Small bowel obstruction K56.609 Total knee replacement status Z96.659 Lung metastases C78.00 Melanoma C43.9 Port-A-Cath in place Z95.828 Lung cancer C34.90
[2022-03-30] MEDS: LEVOTHYROXINE SODIUM 25 MCG TABLET PO SCH (07:49)
[2022-03-30 07:53] LABS: Hematocrit (blood only) 36.6 % (40.1-51.0); Hemoglobin 12.1 g/dl (14.0-18.0); Mean Corpuscular Hemoglobin 32.2 pg (25.0-34.0); Mean Corpuscular Hgb Conc 33.1 g/dL (32.0-36.0); Mean Corpuscular Volume 97.3 fL (80.0-100.0); Mean Platelet Volume 9.2 fL (9.4-12.4); Platelet Count 231 K/uL (130-400); RDW Coefficient of Variation 13.2 % (11.5-14.5); RDW Standard Deviation 46.9 fL (36.4-46.3); Red Blood Count 3.76 M/uL (4.63-6.08); White Blood Count 8.66 K/ul (4.8-10.8)
[2022-03-30 08:14] LABS: BUN Creatinine Ratio 18.3 (10-20); Calcium 8.8 mg/dl (8.5-10.1); Creatinine Clr Calc Pharmacy 54.7 ml/min; Est GFR (African American) 70.3 ml/min; Est GFR (Non-African American) 60.6 ml/min; Potassium 4.1 mmol/L (3.5-5.1)
[2022-03-30] MEDS: ENOXAPARIN INJ 40 MG/0.4 ML SYR SQ SCH (11:36)
[2022-03-30] MEDS: PANTOprazole 40 MG in SYRINGE 0 ML IV SCH (11:36)
--- NOTE | 2022-03-30 13:47 | Surgery Progress Note ---
Date of Service March 30, 2022 Assessment & Plan (1) Small bowel obstruction: Plan: pt is a 76 year-old male who presents with one day history abdominal pain, IMP: SBO, Plan, agree with medicine team admit pt to hospital no emergent surgery indication now, conservative treatment, NPO, IV fluid, control pain, repeat labs and KUB in morning, will F/U, pt agrees with the plan, I answered all questions, 7: 13PM, F/U SBO, pt is stable, no abdominal pain, continue treatment, will F/U, 1:45PM, F/U SBO, Ng tube 350ml pt is stable, no abdominal pain, passed some gas, continue treatment, repeat KUB in morning, will F/U, Admission and Anticipated Discharge Date Admission Date: March 28, 2022 Subjective Patient's had fever to 100.9 F overnight continues with crescendo decrescendo abdominal pain and no flatus pending KUB for the morning 03/30/2022 1: [address] Leung F/U bowel obstruction, passed some gas, no significant abdominal pain, NG tube 350ml, T 37.3 Review of Systems Constitutional: as per Subjective / HPI Eyes: as per Subjective / HPI Respiratory: as per Subjective / HPI lung cancer Cardiovascular: as per Subjective / HPI Gastrointestinal: laparoscopic repair bilateral inguinal hernia, 2 years ago Musculoskeletal: as per Subjective / HPI Neurologic: as per Subjective / HPI Psychiatric: as per Subjective / HPI Endocrine: as per Subjective / HPI Hematologic / Lymphatic: as per Subjective / HPI Physical Exam Constitutional: WD/WN, vitals as above Eyes: PERRL, conjunctivae normal, anicteric sclerae Neck: trachea midline, no thyromegaly Respiratory: normal respiratory effort, lungs clear to auscultation Cardiovascular: RRR, no murmur, no edema Gastrointestinal (Abdomen): mild distend, no tenderness, BS +, Musculoskeletal: no cyanosis or clubbing, extremities motor strength 5/5 Neurologic: patellar DTR's 2+ bilat, sensation intact Psychiatric: A+Ox3, euthymic affect Results & Data ([place]) Vital Signs (Past 12 Hours) Vital Signs Temp Pulse Resp BP Pulse Ox Pulse Ox O2 Del Method 03/30/22 10:52 37.3 C 94 H 18 120/80 91 Room Air 03/30/22 06:25 37.7 C H 88 18 124/81 91 Room Air 03/30/22 06:00 96 O2 Del Method 03/30/22 10:52 03/30/22 06:25 03/30/22 06:00 Room Air Laboratory Results Abnormal lab results 03/29/22 03/30/22 03/30/22 Range/Units 12:34 07:29 07:29 RBC 3.76 L (4.63-6.08) M/uL Hgb 12.1 L (14.0-18.0) g/dl Hct 36.6 L (40.1-51.0) % RDW Std Deviation 46.9 H (36.4-46.3) fL MPV 9.2 L (9.4-12.4) fL Sodium 135 L (136-145) mmol/L TSH 10.632 H (0.300-4.500) uIu/ml
--- NOTE | 2022-03-30 15:56 | XRay Report ---
KUB CLINICAL HISTORY: Small bowel obstruction. COMPARISON STUDY: CT of the abdomen and pelvis March 28, 2022. KUB March 29, 2022. FINDINGS: Surgical clips from hernia repair are incidentally noted. Tip of nasogastric tube is within the gastric fundus. Multiple loops of moderately dilated small bowel are again noted. The findings r epresent a persistent small bowel obstruction. IMPRESSION: Findings consistent with a persistent small bowel obstruction. ACT 112: Negative or not required by law. Electronically signed by: Italo Connell M.D. 03/30/2022 3:55 PM
--- NOTE | 2022-03-31 07:39 | XRay Report ---
FABY CLINICAL HISTORY: ?NG tube placement COMPARISON STUDY: [facility] March 30, 2022. FINDINGS: Tip of nasogastric tube projects over the gastric cardia. The tube could be advanced an add itional 4 cm. Multiple loops of dilated small bowel are again noted. These measure up to 4.7 cm in ca liber. There is elevation of the right hemidiaphragm. Suspected small bilateral pleural effusions IMPRESSION: 1. Tip of nasogastric tube projects over the gastric cardia. The tube could be advanced an additional 4 cm. 2. Findings consistent with a persistent small bowel obstruction. ACT 112: Negative or not required by law. Electronically signed by: Italo Connell M.D. 03/31/2022 7:37 AM
[2022-03-31] MEDS: MoRPHine SULFATE 4 MG/ML 1 ML CARP\\VIAL IV PRN (07:53)
[2022-03-31] MEDS: ONDANSETRON INJ 2 MG/ML 2 ML VIAL IV PRN (07:53)
[2022-03-31 08:01] LABS: Hematocrit (blood only) 35.8 % (40.1-51.0); Hemoglobin 12.3 g/dl (14.0-18.0); Mean Corpuscular Hemoglobin 32.4 pg (25.0-34.0); Mean Corpuscular Hgb Conc 34.4 g/dL (32.0-36.0); Mean Corpuscular Volume 94.2 fL (80.0-100.0); Mean Platelet Volume 9.2 fL (9.4-12.4); Platelet Count 227 K/uL (130-400); RDW Coefficient of Variation 13.1 % (11.5-14.5); RDW Standard Deviation 45.6 fL (36.4-46.3); White Blood Count 7.73 K/ul (4.8-10.8)
[2022-03-31 08:24] LABS: BUN Creatinine Ratio 17.9 (10-20); Calcium 8.9 mg/dl (8.5-10.1); Creatinine Clr Calc Pharmacy 53.7 ml/min; Est GFR (African American) 68.8 ml/min; Est GFR (Non-African American) 59.4 ml/min; Potassium 3.7 mmol/L (3.5-5.1)
--- NOTE | 2022-03-31 09:04 | XRay Report ---
KUB CLINICAL HISTORY: advanced NGT COMPARISON STUDY: [facility] March 30, 2022 at 9:36 PM. FINDINGS: Nasogastric tube is coiled within the stomach. Tip projects over the body of the stomach. T ube is appropriately positioned. Multiple loops of moderately dilated small bowel persist. These stanley ure up to 4.7 cm in caliber. Operative findings from previous hernia repair are incidentally noted. T here is elevation of the right hemidiaphragm. IMPRESSION: 1. Tip of nasogastric tube projects over the body of the stomach. 2. Findings consistent with persistent small bowel obstruction. ACT 112: Negative or not required by law. Electronically signed by: Italo Connell M.D. 03/31/2022 9:03 AM
[2022-03-31] MEDS: LEVOTHYROXINE SODIUM 25 MCG TABLET PO SCH (09:07)
[2022-03-31] MEDS: LACTATED RINGER'S 1,000 ML IV SCH (09:33)
--- NOTE | 2022-03-31 11:58 | Surgery Progress Note ---
Date of Service March 31, 2022 Assessment & Plan (1) Small bowel obstruction: Plan: pt is a 76 year-old male who presents with one day history abdominal pain, IMP: SBO, Plan, agree with medicine team admit pt to hospital no emergent surgery indication now, conservative treatment, NPO, IV fluid, control pain, repeat labs and KUB in morning, will F/U, pt agrees with the plan, I answered all questions, 7: 13PM, F/U SBO, pt is stable, no abdominal pain, continue treatment, will F/U, 1:45PM, F/U SBO, Ng tube 350ml pt is stable, no abdominal pain, passed some gas, continue treatment, repeat KUB in morning, will F/U, 03/31/2022 11: 58 AM, F/U SBO, failure conservative treatment, Plan, I recommend to do exploratory laparotomy, possible bowel resection or stoma, D/W benefits, risks and alternatives of the surgery with pt and his son Shaan, the risks - infection, bleeding, sepsis, injury bowel or other organs, incisional hernia, MD, DVT, stroke, or , pt and his son understood, they agree with surgery, pt signed informed consent, I answered all questions, Admission and Anticipated Discharge Date Admission Date: March 28, 2022 Subjective Patient's had fever to 100.9 F overnight continues with crescendo decrescendo abdominal pain and no flatus pending KUB for the morning 03/30/2022 1: [address] Macedo F/Ninoska bowel obstruction, passed some gas, no significant abdominal pain, NG tube 350ml, T 37.3 03/31/2022 11:55AM, Dr. macedo F/U SBO, not getting better, not pass gas or BM, no fever, abdominal pain +, NG 1850ml, KUB today- Findings consistent with persistent small bowel obstruction. Review of Systems Constitutional: as per Subjective / HPI Eyes: as per Subjective / HPI Respiratory: as per Subjective / HPI lung cancer Cardiovascular: as per Subjective / HPI Gastrointestinal: laparoscopic repair bilateral inguinal hernia, 2 years ago Musculoskeletal: as per Subjective / HPI Neurologic: as per Subjective / HPI Psychiatric: as per Subjective / HPI Endocrine: as per Subjective / HPI Hematologic / Lymphatic: as per Subjective / HPI Physical Exam Constitutional: WD/WN, vitals as above Eyes: PERRL, conjunctivae normal, anicteric sclerae Neck: trachea midline, no thyromegaly Respiratory: normal respiratory effort, lungs clear to auscultation Cardiovascular: RRR, no murmur, no edema Gastrointestinal (Abdomen): soft, mild distend, mild tenderness, no rebound pain, BS +, Musculoskeletal: no cyanosis or clubbing, extremities motor strength 5/5 Neurologic: patellar DTR's 2+ bilat, sensation intact Psychiatric: A+Ox3, euthymic affect Results & Data ([facility]) Vital Signs (Past 12 Hours) Vital Signs Temp Pulse Resp BP Pulse Ox O2 Del Method 03/31/22 08:00 Room Air 03/31/22 06:35 37.3 C 99 H 18 127/82 92 Room Air Laboratory Results Abnormal lab results 03/31/22 Range/Units 07:30 RBC 3.80 L (4.63-6.08) M/uL Hgb 12.3 L (14.0-18.0) g/dl Hct 35.8 L (40.1-51.0) % MPV 9.2 L (9.4-12.4) fL Diagnostic Findings KUB CLINICAL HISTORY: advanced NGT COMPARISON STUDY: KUB March 30, 2022 at 9:36 PM. FINDINGS: Nasogastric tube is coiled within the stomach. Tip projects over the body of the stomach. Tube is appropriately positioned. Multiple loops of moderately dilated small bowel persist. These measure up to 4.7 cm in caliber. Operative findings from previous hernia repair are incidentally noted. There is elevation of the right hemidiaphragm. IMPRESSION: 1. Tip of nasogastric tube projects over the body of the stomach. 2. Findings consistent with persistent small bowel obstruction.
[2022-03-31] MEDS ORDERED: HYDROmorphone INJ 1 MG/ML SYRINGE IV PRN (12:20)
[2022-03-31] MEDS ORDERED: LABETALOL HCL IV 5 MG/ML 20ML IV PRN (12:20)
[2022-03-31] MEDS ORDERED: ATROPINE SULFATE 0.1 MG/ML 10ML SYR IV PRN (12:20)
[2022-03-31] MEDS ORDERED: PHENYLEPHRINE 100MCG/ML 5ML SYR IV PRN (12:20)
[2022-03-31] MEDS ORDERED: MEPERIDINE HCL 25 MG/ML CARP/VIAL IV PRN (12:20)
[2022-03-31] MEDS ORDERED: ONDANSETRON INJ 2 MG/ML 2 ML VIAL IV PRN (12:20)
[2022-03-31] MEDS ORDERED: ePHEDrine sulfate 50 MG/ML AMP IV PRN (12:20)
--- NOTE | 2022-03-31 12:23 | Anesthesiology Consultation ---
Date of Service March 31, 2022 Assessment & Plan (1) Encounter for pre-operative examination: Chart Review Chart Review: Acceptable Risk for Surgery (necessary surgery) and Patient NOT seen in Pre Admission Testing Consults Requested none History Surgery Operation Date: 03/31/22 15:15 Proposed Procedures p Exploratory Laparotomy - Malick Leung MD Height/Weight Height: 5 ft 10 in Weight: 86.5 kg Allergies Allergy/AdvReac Type Severity Reaction Status Date / Time No Known Allergies Allergy Unverified 03/28/22 07:51 Medications Home Medications Medication Instructions Recorded Confirmed Last Taken celecoxib 100 mg capsule 100 mg PO DAILY 03/28/22 03/28/22 03/27/22 esomeprazole magnesium 20 mg 20 mg PO DAILY 03/28/22 03/28/22 03/27/22 capsule,delayed release (Nexium) hydrochlorothiazide 12.5 mg tablet 12.5 mg PO DAILY 03/28/22 03/28/22 03/27/22 levothyroxine 25 mcg tablet 25 mcg PO DAILY 03/28/22 03/28/22 03/27/22 mupirocin 2 % topical ointment 1 applic topical USEASDIRECTD PRN 03/28/22 03/28/22 Unknown Outbreak nebivolol 10 mg tablet 10 mg PO DAILY 03/28/22 03/28/22 03/27/22 olmesartan 40 mg tablet 40 mg PO DAILY 03/28/22 03/28/22 03/27/22 Active Medications Generic Name Dose Route Start Last Admin Trade Name Rudolphq PRN Reason Stop Dose Admin Enoxaparin Sodium 40 mg 03/28/22 12:00 03/30/22 11:36 Enoxaparin Inj 40 Mg/0.4 Ml Syr SQ 04/27/22 11:59 40 mg Q24H ASH Administration Pantoprazole Sodium 40 mg/ 10 mls @ 5 mls/min 03/28/22 15:10 03/30/22 11:36 Syringe IV 04/27/22 15:09 5 mls/min DAILY@1100 ASH Administration Lactated Ringer's 1,000 mls @ 100 mls/hr 03/29/22 16:30 03/31/22 09:33 Lr IV 04/28/22 16:29 100 mls/hr .Q10H ASH Administration Levothyroxine Sodium 25 mcg 03/28/22 11:17 03/31/22 09:07 Levothyroxine Sodium 25 Mcg Tablet PO 04/27/22 11:16 Not Given DAILY ASH Morphine Sulfate 2 mg 03/28/22 11:17 03/31/22 07:53 Morphine Sulfate 4 Mg/Ml 1 Ml Carp\Vial IV 04/11/22 11:16 2 mg Q4H PRN Administration Severe Pain (7,8,9,10) on NRS Ondansetron HCl 4 mg 03/28/22 11:17 03/31/22 07:53 Ondansetron Inj 2 Mg/Ml 2 Ml Vial IV 04/27/22 11:16 4 mg Q6H PRN Administration Nausea Phenol 2 sprays 03/29/22 04:41 03/29/22 05:05 Chloraseptic 1.4% Soln 180 Ml Btl MT 04/28/22 04:40 2 sprays Q2R PRN Administration Sore Throat Past Medical History Medical History Lung cancer Melanoma Port-A-Cath in place Small bowel obstruction Past Surgical History Surgical History S/P hernia surgery Social History Smoking Status: Never smoker Do You Dip or Chew Tobacco: No Hx Alcohol Use: No Hx Substance Use: No Physical Exam Vital Signs Last Vital Signs Temp 37.3 C 03/31/22 06:35 Pulse 99 H 03/31/22 06:35 Resp 18 03/31/22 06:35 BP 127/82 03/31/22 06:35 Pulse Ox 92 03/31/22 06:35 O2 Del Method 03/31/22 08:00 Testing Laboratory Results 03/31/22 07:30 03/31/22 07:30 Urine Color Yellow 03/28/22 18:37 Urine Appearance Clear (Clear) 03/28/22 18:37 Urine pH 7.0 (4.5-7.5) 03/28/22 18:37 Ur Specific [place] 1.022 (1.000-1.030) 03/28/22 18:37 Urine Protein Negative (Negative) 03/28/22 18:37 Urine Glucose (UA) Negative (Negative) 03/28/22 18:37 Urine Ketones Negative (Negative) 03/28/22 18:37 Urine Nitrite Negative (Negative) 03/28/22 18:37 Ur Leukocyte Esterase Negative (Negative) 03/28/22 18:37 Electrocardiogram Date: 03/28/22 Test Reason : Blood Pressure : / mmHG Vent. Rate : 060 BPM Atrial Rate : 060 BPM P-R Int : 198 ms QRS Dur : 094 ms QT Int : 416 ms P-R-T Axes : 045 006 032 degrees QTc Int : 416 ms Normal sinus rhythm Cannot rule out Anterior infarct , age undetermined Abnormal ECG No previous ECGs available Confirmed by Ko Dalton ([id number]) on 03/29/2022 6:00:03 AM Referred By: REFERRED SELF Confirmed By:Ko Dalton Signed By: Other Testing FABY CLINICAL HISTORY: advanced NGT COMPARISON STUDY: FABY March 30, 2022 at 9:36 PM. FINDINGS: Nasogastric tube is coiled within the stomach. Tip projects over the body of the stomach. Tube is appropriately positioned. Multiple loops of moderately dilated small bowel persist. These measure up to 4.7 cm in caliber. Operative findings from previous hernia repair are incidentally noted. There is elevation of the right hemidiaphragm. IMPRESSION: 1. Tip of nasogastric tube projects over the body of the stomach. 2. Findings consistent with persistent small bowel obstruction. ACT 112: Negative or not required by law. Electronically signed by: Italo Connell M.D. 03/31/2022 9:03 AM Dictated:03/31/22901 Transcribed: 03/31/22901
[2022-03-31] MEDS ORDERED: ceFAZolin 2000MG 2,000 MG/15 ML SYR IV ONE (12:37)
--- NOTE | 2022-03-31 12:37 | History & Physical Bridge Note ---
Date of Service March 31, 2022 History & Physical Bridge Note I have examined the patient, reviewed the History & Physical and in the interval since the performance of the History & Physical I have noted the following changes of clinical significance: no changes noted
[2022-03-31] MEDS ORDERED: fentaNYL citrate 100 MCG/2 ML VIAL ONE (12:45)
[2022-03-31] MEDS ORDERED: LIDOCAINE 1% LOCAL 20 ML VIAL ONE (12:46)
[2022-03-31] MEDS ORDERED: BUPIVACAINE 0.5 % 5 MG/1 ML MPF 30ML VIAL ONE (12:46)
[2022-03-31] MEDS: PANTOprazole 40 MG in SYRINGE 0 ML IV SCH (12:48)
[2022-03-31] MEDS: ENOXAPARIN INJ 40 MG/0.4 ML SYR SQ SCH (12:48)
[2022-03-31] MEDS ORDERED: KETAMINE 50 MG/5 ML SYRINGE ONE (13:32)
[2022-03-31] MEDS ORDERED: SUCCINYLCHOLINE CHLORIDE 20 MG/ML 10 ML VIAL IV ONE (13:47)
[2022-03-31] MEDS ORDERED: NEOSTIGMINE METHYLSULFATE 1 MG/ML 10ML VIAL ONE (13:47)
[2022-03-31] MEDS ORDERED: PROPOFOL IV EMULSION 10 MG/ML 100 ML VIAL IV ONE (13:47)
[2022-03-31] MEDS ORDERED: ONDANSETRON INJ 2 MG/ML 2 ML VIAL ONE (13:47)
[2022-03-31] MEDS ORDERED: PHENYLEPHRINE HCL 10 MG/ML VIAL ONE (13:47)
[2022-03-31] MEDS ORDERED: ROCURONIUM BROMIDE 10 MG/ML 5 ML VIAL IV ONE (13:47)
[2022-03-31] MEDS ORDERED: LIDOCAINE 2% MPF LOCAL 5 ML VIAL INFIL ONE (13:47)
[2022-03-31] MEDS ORDERED: ePHEDrine sulfate 50 MG/ML SYR ONE (13:47)
[2022-03-31] MEDS ORDERED: DEXAMETHASONE SOD INJ 4 MG/ML VIAL ONE (13:47)
[2022-03-31] MEDS ORDERED: GLYCOPYRROLATE 0.2 MG/ML VIAL ONE (13:47)
[2022-03-31] MEDS ORDERED: BACITRACIN OINT 15 GM TUBE ONE (14:02)
--- NOTE | 2022-03-31 14:04 | Post Operative Brief Note ---
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
[2022-03-31] MEDS: fentaNYL citrate 100 MCG/2 ML VIAL IV PRN ×4 (14:21→14:41)
--- NOTE | 2022-03-31 14:45 | Anesthesiology Progress Note ---
Date of Service March 31, 2022 Anesthesia Post Procedure Vital Signs Vital Signs: Temp Pulse Pulse Resp BP Pulse Ox O2 Del Method 03/31/22 14:40 90 15 123/79 97 Nasal Cannula 03/31/22 14:30 91 H 18 126/75 99 Oxymask 03/31/22 14:20 88 19 128/75 99 Oxymask 03/31/22 14:13 36.4 C L 86 15 137/77 99 Oxymask 03/31/22 12:50 37.1 C 96 H 18 114/79 93 Room Air 03/31/22 08:00 Room Air 03/31/22 06:35 37.3 C 99 H 18 127/82 92 Room Air 03/30/22 22:55 38.2 C H 107 H 20 129/87 91 Room Air 03/30/22 15:27 37.5 C 97 H 18 120/79 92 Room Air O2 Flow Rate 03/31/22 14:40 3 03/31/22 14:30 10 03/31/22 14:20 10 03/31/22 14:13 10 03/31/22 12:50 03/31/22 08:00 03/31/22 06:35 03/30/22 22:55 03/30/22 15:27 Pain Intensity Abdomen: Pain Intensity: 3 Throat: Pain Intensity: 2 Transfer of Care Handoff Completed per policy Notes Mental Status: alert / awake / arousable Patient Amnestic to Procedure: Yes Nausea / Vomiting: adequately controlled Pain: adequately controlled Airway Patency, RR, SpO2: stable & adequate BP & HR: stable & adequate Hydration State: stable & adequate Anesthetic Complications: no major complications apparent and Pt Satisfied with anesthetic care Notes: The patient is awake and comfortable. His vital signs are stable.
--- NOTE | 2022-03-31 15:35 | Operative Report (OR) ---
DATE OF PROCEDURE: 03/31/2022. PREOPERATIVE DIAGNOSIS: Small bowel obstruction. POSTOPERATIVE DIAGNOSIS: Small bowel obstruction. OPERATION: Exploratory laparotomy, lysis of adhesion. SURGEON: Malick Leung MD. ANESTHESIA: General. ESTIMATED BLOOD LOSS: About 10 mL FINDINGS: Scar across the adhesion caused a small bowel obstruction. COMPLICATIONS: None. INDICATIONS FOR THE PROCEDURE: This is a 76-year-old gentleman who was admitted to the hospital for small bowel obstruction. The patient did the conservative treatment, which was a failure and still jorge ogden had not passed any gas or bowel movement over 4 days. I recommended to do a exploratory lapar otomy, possible bowel resection, possible stoma. I did talk to the patient about the benefit, risk, alternate procedure. I indicated the risks may include, but not limited to, such as bleeding, infect ion, sepsis, injury to other organs, incisional hernia recurrence, small-bowel obstruction, myocardia l infarction, DVT, stroke, even . The patient and patient's son, Shaan, who understands. The jorge ogden signed informed consent and I answered all questions. DETAILS OF PROCEDURE: After we identified the patient and verified the procedure, we brought the pat ient to the OR, put the patient in the supine position on the OR table. The patient received SCD on bilateral legs to prevent DVT. Also, patient received 2 grams of Ancef IV for prophylactic antibioti c. The patient received general anesthesia without difficulty. Also, patient received a Johnson jorge ter insertion. The abdomen was prepped and draped in routine sterile fashion. After timeout, I made a midline incision about 10 cm length, dissection through subcutaneous layer and reached the fascial layer, opened the fascial layer, opened peritoneum and get in the abdomen. There was some free flui d around the abdomen. We suctioned the fluid out and then we found the patient had a small bowel obs truction. We mobilized the small bowel, found the patient had the one scar across a small bowel obst ruction. I released the scar and immediately the distal small bowel is patent and also the small bow el blood circulation is good, pink. At this moment, once we released these adhesions and rechecked, no other bowel obstruction. Hemostasis obtained, then I closed the fascial layer by using #1 PDS con tinuous running, closed the skin by using 2-0 Vicryl continuous running, closed skin by using staple. Then, we put the dressing on. The patient tolerated the procedure well. All instrument, needle an d sponge counts were correct x2 at the end of the case. The patient was transferred to recovery room in stable condition. After the procedure, I did talk to the patient about the OR finding and the pr ocedure we did, the patient understands. Job ID: [id number]
[2022-03-31] MEDS ORDERED: MUPIROCIN 2% OINT 22 GM TUBE TOP PRN (15:43)
[2022-03-31] MEDS: D5W AND 1/2NSS + 20MEQ KCL 20 MEQ/1,000 ML BAG IV SCH (16:57)
--- NOTE | 2022-03-31 19:14 | Hospitalist Progress Note ---
Date of Service March 31, 2022 Assessment & Plan (1) Small bowel obstruction: Plan: Eliezer is a 76-year-old male with a past medical history of metastatic melanoma with mets to lung undergoing monthly immunotherapy treatment with last treatment March 20 and no history of radiation who presents with 1 day of acute abdominal pain and CT indicating small bowel obstruction. He has a history of 2 prior abdominal hernia surgery repairs. No history of appendectomy or cholecystectomy. Symptoms are improved at bedside assessment with antiemetics and analgesics. Small bowel obstruction. s/p surgical resection 03/31/22 - Surgical history of 2 abdominal hernias repaired surgically. No hx of katrin/appy. - CT-A/P: IMPRESSION: Findings are compatible with small bowel obstruction. Bowel gas and some colonic gas remains. No evidence of perforation. Proximal and distal transition points are noted. Continue NG tube to low remittent suction Metastatic melanoma Mets to lung, patient undergoing targeted immunotherapy monthly. Last treatment March 20 Lungs clear on admission Reports he has been tolerating the immunotherapy well Is from [place], [place], records not currently available Follow, stable, no acute intervention anticipated Hypertension Nebivolol held while n.p.o., hydrochlorothiazide, olmesartan held while n.p.o. Metoprolol tartrate 5 mg IV every 6 hours as needed placed for beta-troy withdrawal/hypertension as needed Needs hydralazine 5 mg every 6 hours IV as needed as needed for additional hypertension, second line to initial metoprolol dose GERD Hold Nexium Metoprolol IV daily while n.p.o. Hypothyroidism Recent since radiation, but reports suspected side effect of his immunotherapy Hold Synthroid, if p.o. not improving within 72 hours resume at 70% dose via IV TSH pending DVT prophylaxis: Lovenox Diet: N.p.o. CODE STATUS: Surrogate DM would be Son Shaan Decker. [phone]. Full Code. Son was updated on the phone 03/29/2022 (2) Total knee replacement status: (3) Lung metastases: (4) Melanoma: (5) Port-A-Cath in place: (6) Lung cancer: Admission and Anticipated Discharge Date Admission Date: March 28, 2022 Subjective pt taken to the OR 03/31/22. sbo relieved, pt with NGT and family at bedside Review of Systems Review of Systems: Mild distress and fatigue no headache, no visual changes no speech or swallowing issues no chest pain, pressure or palpitations no shortness of breath, cough or wheezes Crescendo decrescendo abdominal pain centrally in the abdomen no bowel movement present no vomiting no dysuria, hematuria or frequency no focal joint pain or swelling no back pain, CVA tenderness or radicular pain no bruising, bleeding or rashes no focal signs of weakness or numbness or altered sensation no complaints of anxiety or depression.. Physical Exam Physical Exam: The patient appeared well nourished and normally developed. Vital signs as documented. Head exam is normocephalic atraumatic Neck is without JVD, thyromegaly, or carotid bruits. Lungs are clear to auscultation, no focal loss of breath sounds Cardiac exam, Rhythm is regular.. No murmurs, rubs or gallops. Abdominal exam reveals hyperactive bowel sounds but no tinkling no distention or tympany. does have discomfort to examination Extremities are nonedematous and both pedal pulses are present Neurologic exam is alert and oriented, no focal loss of strength or sensation Skin is without bruises or rashes Psychologically is without concerns for anxiety or depression.. Results & Data Results & Data ([facility]) Vital Signs (Past 12 Hours) Vital Signs Temp Pulse Pulse Resp BP Pulse Ox O2 Del Method 03/31/22 18:34 98.8 F 88 16 119/76 92 Room Air 03/31/22 17:37 99.0 F 92 H 16 111/76 93 Room Air 03/31/22 15:37 99.0 F 95 H 20 152/69 H 94 Nasal Cannula 03/31/22 16:43 99.0 F 94 H 18 117/73 92 Room Air 03/31/22 15:00 97.5 F L 91 H 13 131/77 97 Nasal Cannula 03/31/22 14:50 90 15 133/76 97 Nasal Cannula 03/31/22 14:40 90 15 123/79 97 Nasal Cannula 03/31/22 14:30 91 H 18 126/75 99 Oxymask 03/31/22 14:20 88 19 128/75 99 Oxymask 03/31/22 14:13 97.5 F L 86 15 137/77 99 Oxymask 03/31/22 12:50 98.8 F 96 H 18 114/79 93 Room Air 03/31/22 08:00 Room Air O2 Flow Rate 03/31/22 18:34 03/31/22 17:37 03/31/22 15:37 3 03/31/22 16:43 03/31/22 15:00 3 03/31/22 14:50 3 03/31/22 14:40 3 03/31/22 14:30 10 03/31/22 14:20 10 03/31/22 14:13 10 03/31/22 12:50 03/31/22 08:00 PG Care Time/CCT Total # of Minutes Spent Total Time Spent with Patient: Total time spent is greater than 50% in coordination of care (as documented) at patient's floor/unit and/or counseling patient: Coding Level of Care Code 05489 Subseq Hosp Care Lvl 2 Diagnoses Small bowel obstruction K56.609 Total knee replacement status Z96.659 Lung metastases C78.00 Melanoma C43.9 Port-A-Cath in place Z95.828 Lung cancer C34.90
[2022-04-01] MEDS: D5W AND 1/2NSS + 20MEQ KCL 20 MEQ/1,000 ML BAG IV SCH ×3 (03:03→23:07)
[2022-04-01 06:27] LABS: Hematocrit (blood only) 31.1 % (40.1-51.0); Hemoglobin 10.4 g/dl (14.0-18.0); Immature Granulocytes # (auto) 0.02 K/uL (0.00-0.02); Immature Granulocytes % (auto) 0.3 %; Lymphocytes # (auto) 0.48 K/uL (1.2-3.4); Lymphocytes % (auto) 6.8 %; Mean Corpuscular Hgb Conc 33.4 g/dL (32.0-36.0); Mean Corpuscular Volume 95.7 fL (80.0-100.0); Mean Platelet Volume 9.1 fL (9.4-12.4); Monocytes # (auto) 0.56 K/uL (0.24-0.82); Monocytes % (auto) 7.9 %; Platelet Count 200 K/uL (130-400); RDW Coefficient of Variation 12.7 % (11.5-14.5); RDW Standard Deviation 44.2 fL (36.4-46.3); Red Blood Count 3.25 M/uL (4.63-6.08); White Blood Count 7.06 K/ul (4.8-10.8)
[2022-04-01 06:59] LABS: Albumin Globulin Ratio 1.2 (0.9-2); Albumin Level 2.9 gm/dl (3.4-5.0); BUN Creatinine Ratio 20.2 (10-20); Bilirubin,Total 0.6 mg/dl (0.2-1.0); Creatinine Clr Calc Pharmacy 55.1 ml/min; Est GFR (Non-African American) 61.3 ml/min; Globulin 2.4 gm/dl (2.5-4.0); Potassium 4.2 mmol/L (3.5-5.1); Total Protein 5.3 gm/dl (6.0-8.3)
[2022-04-01] MEDS ORDERED: OLMESARTAN MEDOXOMIL 40 MG TAB PO SCH (09:00)
[2022-04-01] MEDS ORDERED: CELECOXIB 100 MG CAP PO SCH (09:00)
[2022-04-01] MEDS ORDERED: PANTOprazole 40 MG TAB PO SCH (09:00)
[2022-04-01] MEDS: LEVOTHYROXINE SODIUM 25 MCG TABLET PO SCH ×2 (10:01→12:58)
--- NOTE | 2022-04-01 10:22 | Surgery Progress Note ---
Date of Service April 01, 2022 Assessment & Plan (1) Small bowel obstruction: (2) S/P exploratory laparotomy: Plan POD #1 s/p Ex Lap with Dr. Leung. Patient seen and examined with Dr. Cross. Eliezer reports that he is feeling better today. Pain is controlled. He reports that NG tube is uncomfortable. Will order KUB for tomorrow morning. Continue NPO status today. Ok to D/C gaines- order placed. Patient encouraged to sit in chair at bedside today. As above. Doing well overall. Pain is controlled. We will now await bowel function. Keep NG tube for now Admission and Anticipated Discharge Date Admission Date: March 28, 2022 Betsy Desai is resting in bed with his son at bedside. He is POD #1 s/p Ex Lap. NG tube and gaines catheter in place. He reports that he is feeling better than before surgery. He finds the NG tube uncomfortable. Review of Systems Gastrointestinal: no abdominal pain, no nausea and no vomiting Integumentary: Expected tenderness at incision Physical Exam Physical Exam: NG tube in place with approximately 750 mL of output overnight. Gaines catheter in place. Constitutional: WD/WN, vitals as above Gastrointestinal (Abdomen): Inspection/Auscultation: abdomen not distended Percussion/Palpation: + abdomen tender (tender at incision site) and abdomen soft Results & Data ([facility]) Vital Signs (Past 12 Hours) Vital Signs Temp Pulse Resp BP Pulse Ox O2 Del Method O2 Flow Rate 04/01/22 07:54 36.8 C 67 18 122/77 95 Room Air 04/01/22 04:42 Nasal Cannula 2 03/31/22 22:46 37.2 C 81 18 122/74 92 Room Air PG Care Time/CCT Total # of Minutes Spent Total Time Spent with Patient: Total time spent is greater than 50% in coordination of care (as documented) at patient's floor/unit and/or counseling patient: Coding Level of Care Code None Diagnoses Small bowel obstruction K56.609 S/P exploratory laparotomy Z98.890
[2022-04-01] MEDS: PANTOprazole 40 MG in SYRINGE 0 ML IV SCH (11:34)
[2022-04-01] MEDS: ENOXAPARIN INJ 40 MG/0.4 ML SYR SQ SCH (11:35)
--- NOTE | 2022-04-01 15:43 | Hospitalist Progress Note ---
Date of Service April 01, 2022 Assessment & Plan (1) Small bowel obstruction: Plan: Eliezer is a 76-year-old male with a past medical history of metastatic melanoma with mets to lung undergoing monthly immunotherapy treatment with last treatment March 20 and no history of radiation who presents with 1 day of acute abdominal pain and CT indicating small bowel obstruction. He has a history of 2 prior abdominal hernia surgery repairs. No history of appendectomy or cholecystectomy. Symptoms are improved at bedside assessment with antiemetics and analgesics. Small bowel obstruction. s/p surgical resection 03/31/22 - Surgical history of 2 abdominal hernias repaired surgically. No hx of katrin/appy. - CT-A/P: IMPRESSION: Findings are compatible with small bowel obstruction. Bowel gas and some colonic gas remains. No evidence of perforation. Proximal and distal transition points are noted. Continue NG tube to low remittent suction Metastatic melanoma Mets to lung, patient undergoing targeted immunotherapy monthly. Last treatment March 20 Lungs clear on admission Reports he has been tolerating the immunotherapy well Is from [place], [place], records not currently available Follow, stable, no acute intervention anticipated Hypertension Nebivolol held while n.p.o., hydrochlorothiazide, olmesartan held while n.p.o. Metoprolol tartrate 5 mg IV every 6 hours as needed placed for beta-troy withdrawal/hypertension as needed Needs hydralazine 5 mg every 6 hours IV as needed as needed for additional hypertension, second line to initial metoprolol dose GERD Hold Nexium Metoprolol IV daily while n.p.o. Hypothyroidism Recent since radiation, but reports suspected side effect of his immunotherapy Hold Synthroid, if p.o. not improving within 72 hours resume at 70% dose via IV TSH pending DVT prophylaxis: Lovenox Diet: N.p.o. CODE STATUS: Surrogate DM would be Son Shaan Decker. [phone]. Full Code. Son was updated on the phone 03/29/2022 (2) Total knee replacement status: (3) Lung metastases: (4) Melanoma: (5) Port-A-Cath in place: (6) Lung cancer: Admission and Anticipated Discharge Date Admission Date: March 28, 2022 Subjective pt is accompained by his son and feeling better, wants gaines out, and eventually wants the ng out, surgery is pleased with his progress Review of Systems Review of Systems: Mild distress and fatigue no headache, no visual changes no speech or swallowing issues no chest pain, pressure or palpitations no shortness of breath, cough or wheezes improved pain in abdomen no bowel movement present no vomiting no dysuria, hematuria or frequency no focal joint pain or swelling no back pain, CVA tenderness or radicular pain no bruising, bleeding or rashes no focal signs of weakness or numbness or altered sensation no complaints of anxiety or depression. Physical Exam Physical Exam: The patient appeared well nourished and normally developed. Vital signs as documented. Head exam is normocephalic atraumatic Neck is without JVD, thyromegaly, or carotid bruits. Lungs are clear to auscultation, no focal loss of breath sounds Cardiac exam, Rhythm is regular.. No murmurs, rubs or gallops. Abdominal exam reveals hyperactive bowel sounds but no tinkling no distention or tympany. does have discomfort to examination Extremities are nonedematous and both pedal pulses are present Neurologic exam is alert and oriented, no focal loss of strength or sensation Skin is without bruises or rashes Psychologically is without concerns for anxiety or depression. Results & Data Results & Data ([facility]) Vital Signs (Past 12 Hours) Vital Signs Temp Pulse Resp BP Pulse Ox O2 Del Method O2 Flow Rate 04/01/22 07:54 98.2 F 67 18 122/77 95 Room Air 04/01/22 04:42 Nasal Cannula 2 PG Care Time/CCT Total # of Minutes Spent Total Time Spent with Patient: Total time spent is greater than 50% in coordination of care (as documented) at patient's floor/unit and/or counseling patient: Coding Level of Care Code 69694 Subseq Hosp Care Lvl 2 Diagnoses Small bowel obstruction K56.609 Total knee replacement status Z96.659 Lung metastases C78.00 Melanoma C43.9 Port-A-Cath in place Z95.828 Lung cancer C34.90
[2022-04-01] MEDS: ACETAMINOPHEN 1000 MG/100 ML IV IV PRN (21:31)
[2022-04-02] MEDS ORDERED: diphenhydrAMINE 50 MG/ML VIAL IV ONE (02:09)
--- NOTE | 2022-04-02 02:11 | Communication Note ---
Date of Service: April 02, 2022 Nursing noted a red rash on back during bath. Pruritic. Ordering triamcinolone cream 0.1% and a dose of IV benadryl 12.5mg. Assess rash during morning rounds. Adding activity order: OOB chair w/ assistance. Inquired about ambulating, but will defer to dayshift and surgery team. Patient is 1.5 days out from ex lap.
[2022-04-02] MEDS: TRIAMCINOLONE ACET 0.1% CR 80 GM TUBE EXT PRN ×2 (06:47→22:03)
[2022-04-02] MEDS: LEVOTHYROXINE SODIUM 25 MCG TABLET PO SCH (07:20)
--- NOTE | 2022-04-02 07:30 | Surgery Progress Note ---
Date of Service April 02, 2022 Assessment & Plan (1) S/P exploratory laparotomy: (2) Small bowel obstruction: Plan POD #2 s/p Ex Lap with Dr. Leung. Patient feels that he is slowly improving. Pain is controlled. Gaines removed yesterday and he is voiding without issue. He does not feel hungry yet, but is thirsty. He has started to pass flatus. KUB taken this morning, awaiting results. Can consider clamping NG if KUB looks ok. He will continue to get out of bed and sit in chair at bedside. Dr. Leung to resume care tomorrow. as above. KUB pending. doing well post operatively so far. awaiting full return of bowel fx. POD #1 s/p Ex Lap with Dr. Leung. Patient seen and examined with Dr. Cross. Eliezer reports that he is feeling better today. Pain is controlled. He reports that NG tube is uncomfortable. Will order KUB for tomorrow morning. Continue NPO status today. Ok to D/C gaines- order placed. Patient encouraged to sit in chair at bedside today. As above. Doing well overall. Pain is controlled. We will now await bowel function. Keep NG tube for now Admission and Anticipated Discharge Date Admission Date: March 28, 2022 Subjective Patient resting in bed and reports that pain is well-controlled. He states that the NG tube is still quite uncomfortable. He reports that he has started to pass some gas. He's not feeling hungry yet, but is feeling thirsty. He denies nausea. He was able to sit in chair at bedside yesterday without any issue. Gaines was removed yesterday and he is voiding without issue. Review of Systems Constitutional: no fever and no chills Gastrointestinal: no abdominal pain, no nausea and no vomiting Physical Exam Physical Exam: NG tube in place with decreasing output overnight. Constitutional: WD/WN, vitals as above Gastrointestinal (Abdomen): Inspection/Auscultation: abdomen not distended Percussion/Palpation: + abdomen tender (tender at incision site) and abdomen soft Results & Data ([facility]) Vital Signs (Past 12 Hours) Vital Signs Temp Pulse Resp BP Pulse Ox O2 Del Method 04/02/22 02:07 80 20 92 Room Air 04/01/22 22:32 37.1 C 77 17 134/75 92 Room Air PG Care Time/CCT Total # of Minutes Spent Total Time Spent with Patient: Total time spent is greater than 50% in coordination of care (as documented) at patient's floor/unit and/or counseling patient: Coding Level of Care Code None Diagnoses S/P exploratory laparotomy Z98.890 Small bowel obstruction K56.609
[2022-04-02] MEDS: D5W AND 1/2NSS + 20MEQ KCL 20 MEQ/1,000 ML BAG IV SCH ×2 (07:38→16:35)
[2022-04-02] MEDS: ACETAMINOPHEN 1000 MG/100 ML IV IV PRN (07:46)
--- NOTE | 2022-04-02 08:44 | XRay Report ---
XR KUB/Abdomen 1 view CLINICAL HISTORY: POD #2 s/p Ex Lap. Follow-up small bowel dilatation COMPARISON STUDY: 03/31/2022 TECHNIQUE: Single view of the abdomen. FINDINGS: Compared to the previous examination, dilated loops of small bowel are again seen and unchanged. Ther e is air present within the colon and in the rectum. NG tube is again seen extending into the distal body of the stomach. There is no evidence for organomegaly or gross intra-abdominal mass. No abnormal calcifications are seen along the course of the urinary tracts bilaterally. No acute osseous patholo gy. IMPRESSION: 1. Compared to previous examination, mildly dilated air-filled loops of small bowel are again seen an d unchanged. 2. There is air present within the colon. ACT 112: Negative or not required by law. Electronically signed by: Solomon Toledo M.D. 04/02/2022 8:42 AM
[2022-04-02] MEDS: PANTOprazole 40 MG in SYRINGE 0 ML IV SCH (11:09)
[2022-04-02] MEDS: ENOXAPARIN INJ 40 MG/0.4 ML SYR SQ SCH (11:10)
[2022-04-02] MEDS: ONDANSETRON INJ 2 MG/ML 2 ML VIAL IV PRN (14:28)
[2022-04-02] MEDS: PROMETHAZINE HCL 12.5 MG in SODIUM CHLORIDE 0.9% 50 ML IV PRN ×2 (16:35→21:59)
--- NOTE | 2022-04-02 18:12 | Hospitalist Progress Note ---
Date of Service April 02, 2022 Assessment & Plan (1) Small bowel obstruction: Plan: Eliezer is a 76-year-old male with a past medical history of metastatic melanoma with mets to lung undergoing monthly immunotherapy treatment with last treatment March 20 and no history of radiation who presents with 1 day of acute abdominal pain and CT indicating small bowel obstruction. He has a history of 2 prior abdominal hernia surgery repairs. No history of appendectomy or cholecystectomy. Symptoms are improved at bedside assessment with antiemetics and analgesics. Small bowel obstruction. s/p surgical resection 03/31/22 - Surgical history of 2 abdominal hernias repaired surgically. No hx of katrin/appy. - CT-A/P: IMPRESSION: Findings are compatible with small bowel obstruction. Bowel gas and some colonic gas remains. No evidence of perforation. Proximal and distal transition points are noted. Continue NG tube to low remittent suction as KUB shows persistent bowel gas pattern Metastatic melanoma Mets to lung, patient undergoing targeted immunotherapy monthly. Last treatment March 20 Lungs clear on admission Reports he has been tolerating the immunotherapy well Is from [place], records not currently available Follow, stable, no acute intervention anticipated Hypertension Nebivolol held while n.p.o., hydrochlorothiazide, olmesartan held while n.p.o. Metoprolol tartrate 5 mg IV every 6 hours as needed placed for beta-troy withdrawal/hypertension as needed Needs hydralazine 5 mg every 6 hours IV as needed as needed for additional hypertension, second line to initial metoprolol dose GERD Hold Nexium Metoprolol IV daily while n.p.o. Hypothyroidism Recent since radiation, but reports suspected side effect of his immunotherapy Hold Synthroid, if p.o. not improving within 72 hours resume at 70% dose via IV TSH pending DVT prophylaxis: Lovenox Diet: N.p.o. CODE STATUS: Surrogate DM would be Son Shaan Decker. [phone]. Full Code. Son was updated on the phone 03/29/2022 (2) Total knee replacement status: (3) Lung metastases: (4) Melanoma: (5) Port-A-Cath in place: (6) Lung cancer: Admission and Anticipated Discharge Date Admission Date: March 28, 2022 Subjective Patient resting in bed and reports that pain is well-controlled. He states that the NG tube is still quite uncomfortable. He reports that he has started to pass some gas. He's not feeling hungry yet, but is feeling thirsty. He denies nausea. He was able to sit in chair at bedside yesterday without any issue. Johnson was removed yesterday and he is voiding without issue. kub on 04/02 shows increased gas pattern, pt did have some flatus, has some cough from NGT Review of Systems Review of Systems: Mild distress and fatigue no headache, no visual changes no speech or swallowing issues no chest pain, pressure or palpitations no shortness of breath, cough or wheezes improved pain in abdomen no bowel movement present no vomiting no dysuria, hematuria or frequency no focal joint pain or swelling no back pain, CVA tenderness or radicular pain no bruising, bleeding or rashes no focal signs of weakness or numbness or altered sensation no complaints of anxiety or depression. Physical Exam Physical Exam: The patient appeared well nourished and normally developed. Vital signs as documented. Head exam is normocephalic atraumatic Neck is without JVD, thyromegaly, or carotid bruits. Lungs are clear to auscultation, no focal loss of breath sounds Cardiac exam, Rhythm is regular.. No murmurs, rubs or gallops. Abdominal exam reveals hyperactive bowel sounds but no tinkling no distention or tympany. does have discomfort to examination Extremities are nonedematous and both pedal pulses are present Neurologic exam is alert and oriented, no focal loss of strength or sensation Skin is without bruises or rashes Psychologically is without concerns for anxiety or depression. Results & Data Results & Data ([facility]) Vital Signs (Past 12 Hours) Vital Signs Temp Pulse Resp BP Pulse Ox O2 Del Method 04/02/22 15:28 98.8 F 76 18 143/85 H 93 Room Air 04/02/22 07:41 98.6 F 76 18 138/84 92 Room Air PG Care Time/CCT Total # of Minutes Spent Total Time Spent with Patient: Total time spent is greater than 50% in coordination of care (as documented) at patient's floor/unit and/or counseling patient: Coding Level of Care Code 60580 Subseq Hosp Care Lvl 2 Diagnoses Small bowel obstruction K56.609 Total knee replacement status Z96.659 Lung metastases C78.00 Melanoma C43.9 Port-A-Cath in place Z95.828 Lung cancer C34.90
[2022-04-02] MEDS ORDERED: LORazepam 0.5 MG in SYRINGE 0.25 ML IV ONE (21:00)
[2022-04-03] MEDS: D5W AND 1/2NSS + 20MEQ KCL 20 MEQ/1,000 ML BAG IV SCH (03:34)
[2022-04-03] MEDS: ACETAMINOPHEN 1000 MG/100 ML IV IV PRN (06:21)
[2022-04-03] MEDS: LEVOTHYROXINE SODIUM 25 MCG TABLET PO SCH (07:16)
[2022-04-03] MEDS: ENOXAPARIN INJ 40 MG/0.4 ML SYR SQ SCH (11:09)
[2022-04-03] MEDS: PANTOprazole 40 MG in SYRINGE 0 ML IV SCH (11:09)
--- NOTE | 2022-04-03 11:59 | Surgery Progress Note ---
Date of Service April 03, 2022 Assessment & Plan (1) Small bowel obstruction: Plan: pt is a 76 year-old male who presents with one day history abdominal pain, IMP: SBO, Plan, agree with medicine team admit pt to hospital no emergent surgery indication now, conservative treatment, NPO, IV fluid, control pain, repeat labs and KUB in morning, will F/U, pt agrees with the plan, I answered all questions, 7: 13PM, F/U SBO, pt is stable, no abdominal pain, continue treatment, will F/U, 1:45PM, F/U SBO, Ng tube 350ml pt is stable, no abdominal pain, passed some gas, continue treatment, repeat KUB in morning, will F/U, 03/31/2022 11: 58 AM, F/U SBO, failure conservative treatment, Plan, I recommend to do exploratory laparotomy, possible bowel resection or stoma, D/W benefits, risks and alternatives of the surgery with pt and his son Shaan, the risks - infection, bleeding, sepsis, injury bowel or other organs, incisional hernia, OR, DVT, stroke, or , pt and his son understood, they agree with surgery, pt signed informed consent, I answered all questions, 04/03/2022 11:58AM F/U S/P exp lap, lysis of adhesion, POD 3 doing fine, passed gas, remove NG tube, clear diet, repeat labs in morning, will F/U, OOB Admission and Anticipated Discharge Date Admission Date: March 28, 2022 Subjective Patient resting in bed and reports that pain is well-controlled. He states that the NG tube is still quite uncomfortable. He reports that he has started to pass some gas. He's not feeling hungry yet, but is feeling thirsty. He denies nausea. He was able to sit in chair at bedside yesterday without any issue. Johnson was removed yesterday and he is voiding without issue. kub on 04/02 shows increased gas pattern, pt did have some flatus, has some cough from NGT 04/03/2022 11:55AM, Dr. Leung F/U S/P exp lap, lysis of adhesion, POD 3, pt feels better, passed gas, no significant abdominal pain, NG tube- 200/day, no fever, Review of Systems Constitutional: as per Subjective / HPI Eyes: as per Subjective / HPI Respiratory: as per Subjective / HPI lung cancer Cardiovascular: as per Subjective / HPI Gastrointestinal: laparoscopic repair bilateral inguinal hernia, 2 years ago Musculoskeletal: as per Subjective / HPI Neurologic: as per Subjective / HPI Psychiatric: as per Subjective / HPI Endocrine: as per Subjective / HPI Hematologic / Lymphatic: as per Subjective / HPI Physical Exam Constitutional: WD/WN, vitals as above Eyes: PERRL, conjunctivae normal, anicteric sclerae Neck: trachea midline, no thyromegaly Respiratory: normal respiratory effort, lungs clear to auscultation Cardiovascular: RRR, no murmur, no edema Gastrointestinal (Abdomen): mild tenderness at incision site, no rebound pain, no distend, BS +, the incision heal well no redness, no drainage, Musculoskeletal: no cyanosis or clubbing, extremities motor strength 5/5 Neurologic: patellar DTR's 2+ bilat, sensation intact Psychiatric: A+Ox3, euthymic affect Results & Data ([facility]) Vital Signs (Past 12 Hours) Vital Signs Temp Pulse Resp BP Pulse Ox O2 Del Method 04/03/22 07:53 36.8 C 67 18 127/79 92 Room Air 04/03/22 06:17 73 20 92 Room Air 04/03/22 00:18 72 20 92 Room Air
[2022-04-03] MEDS ORDERED: COUGH DROP (SUGAR FREE) LOZ 24 LOZ/1 BOX BUCCAL PRN (12:05)
--- NOTE | 2022-04-03 13:47 | Hospitalist Progress Note ---
Date of Service April 03, 2022 Assessment & Plan (1) Small bowel obstruction: Plan: Eliezer is a 76-year-old male with a past medical history of metastatic melanoma with mets to lung undergoing monthly immunotherapy treatment with last treatment March 20 and no history of radiation who presents with 1 day of acute abdominal pain and CT indicating small bowel obstruction. He has a history of 2 prior abdominal hernia surgery repairs. No history of appendectomy or cholecystectomy. Small bowel obstruction. s/p surgical resection 03/31/22 - Surgical history of 2 abdominal hernias repaired surgically. No hx of katrin/appy. - CT-A/P: IMPRESSION: Findings are compatible with small bowel obstruction. Bowel gas and some colonic gas remains. No evidence of perforation. Proximal and distal transition points are noted. NGT removed 04/03/22 Metastatic melanoma Mets to lung, patient undergoing targeted immunotherapy monthly. Last treatment March 20 Lungs clear on admission Reports he has been tolerating the immunotherapy well Is from [place], [place], records not currently available Follow, stable, no acute intervention anticipated Hypertension Nebivolol held while n.p.o., hydrochlorothiazide, olmesartan, restart once reliably taking po Metoprolol tartrate 5 mg IV every 6 hours as needed placed for beta-troy withdrawal/hypertension as needed Needs hydralazine 5 mg every 6 hours IV as needed as needed for additional hypertension, second line to initial metoprolol dose GERD Hold Nexium Metoprolol IV daily while n.p.o. Hypothyroidism Recent since radiation, but reports suspected side effect of his immunotherapy Hold Synthroid, if p.o. not improving within 72 hours resume at 70% dose via IV TSH pending DVT prophylaxis: Lovenox Diet: N.p.o. CODE STATUS: Surrogate DM would be Son Shaan Decker. [phone]. Full Code. Son was updated on the phone 03/29/2022 (2) Total knee replacement status: (3) Lung metastases: (4) Melanoma: (5) Port-A-Cath in place: (6) Lung cancer: Admission and Anticipated Discharge Date Admission Date: March 28, 2022 Subjective pt feeling improved, did have flatus, no bm yet, surgery removed ngt and will stop IVF as has clears and ice chips, pain controlled Review of Systems Review of Systems: Mild distress and fatigue no headache, no visual changes no speech or swallowing issues no chest pain, pressure or palpitations no shortness of breath, cough or wheezes improved pain in abdomen no bowel movement present no vomiting no dysuria, hematuria or frequency no focal joint pain or swelling no back pain, CVA tenderness or radicular pain no bruising, bleeding or rashes no focal signs of weakness or numbness or altered sensation no complaints of anxiety or depression. Physical Exam Physical Exam: The patient appeared well nourished and normally developed. Vital signs as documented. Head exam is normocephalic atraumatic Neck is without JVD, thyromegaly, or carotid bruits. Lungs are clear to auscultation, no focal loss of breath sounds Cardiac exam, Rhythm is regular.. No murmurs, rubs or gallops. Abdominal exam reveals hyperactive bowel sounds but no tinkling no distention or tympany. does have discomfort to examination Extremities are nonedematous and both pedal pulses are present Neurologic exam is alert and oriented, no focal loss of strength or sensation Skin is without bruises or rashes Psychologically is without concerns for anxiety or depression. Results & Data Results & Data ([facility]) Vital Signs (Past 12 Hours) Vital Signs Temp Pulse Resp BP Pulse Ox O2 Del Method 04/03/22 07:53 98.2 F 67 18 127/79 92 Room Air 04/03/22 06:17 73 20 92 Room Air PG Care Time/CCT Total # of Minutes Spent Total Time Spent with Patient: Total time spent is greater than 50% in coordination of care (as documented) at patient's floor/unit and/or counseling patient: Coding Level of Care Code 02454 Subseq Hosp Care Lvl 2 Diagnoses Small bowel obstruction K56.609 Total knee replacement status Z96.659 Lung metastases C78.00 Melanoma C43.9 Port-A-Cath in place Z95.828 Lung cancer C34.90
[2022-04-03] MEDS ORDERED: MELATONIN 3 MG TAB PO PRN (19:54)
[2022-04-03] MEDS: PROMETHAZINE HCL 12.5 MG in SODIUM CHLORIDE 0.9% 50 ML IV PRN (21:13)
[2022-04-04] MEDS: LEVOTHYROXINE SODIUM 25 MCG TABLET PO SCH (08:38)
[2022-04-04 08:49] LABS: Basophils # (auto) 0.03 K/uL (0-0.2); Basophils % (auto) 0.4 %; Eosinophils # (auto) 0.36 K/uL (0-0.50); Eosinophils % (auto) 5.2 %; Hematocrit (blood only) 31.8 % (40.1-51.0); Hemoglobin 10.5 g/dl (14.0-18.0); Immature Granulocytes # (auto) 0.04 K/uL (0.00-0.02); Immature Granulocytes % (auto) 0.6 %; Lymphocytes # (auto) 1.01 K/uL (1.2-3.4); Lymphocytes % (auto) 14.7 %; Monocytes # (auto) 0.56 K/uL (0.24-0.82); Monocytes % (auto) 8.2 %; Neutrophils # (auto) 4.86 K/uL (1.4-6.5); Neutrophils % (auto) 70.9 %; Platelet Count 224 K/uL (130-400); RDW Coefficient of Variation 12.9 % (11.5-14.5); RDW Standard Deviation 46.3 fL (36.4-46.3); Red Blood Count 3.28 M/uL (4.63-6.08); White Blood Count 6.86 K/ul (4.8-10.8)
[2022-04-04 09:14] LABS: Albumin Globulin Ratio 1.3 (0.9-2); BUN Creatinine Ratio 11.8 (10-20); Bilirubin,Total 0.5 mg/dl (0.2-1.0); Calcium 8.4 mg/dl (8.5-10.1); Creatinine Clr Calc Pharmacy 67.6 ml/min; Est GFR (African American) 90.8 ml/min; Est GFR (Non-African American) 78.4 ml/min; Globulin 2.4 gm/dl (2.5-4.0); Potassium 3.6 mmol/L (3.5-5.1); Total Protein 5.4 gm/dl (6.0-8.3)
[2022-04-04] MEDS: ENOXAPARIN INJ 40 MG/0.4 ML SYR SQ SCH (11:17)
[2022-04-04] MEDS: PANTOprazole 40 MG in SYRINGE 0 ML IV SCH (11:18)
[2022-04-04] MEDS: MAGNESIUM SULFATE / D5W 1 GM/100 ML BAG IV SCH ×2 (11:24→13:31)
--- NOTE | 2022-04-04 12:02 | Surgery Progress Note ---
Date of Service April 04, 2022 Assessment & Plan (1) Small bowel obstruction: Plan: pt is a 76 year-old male who presents with one day history abdominal pain, IMP: SBO, Plan, agree with medicine team admit pt to hospital no emergent surgery indication now, conservative treatment, NPO, IV fluid, control pain, repeat labs and KUB in morning, will F/U, pt agrees with the plan, I answered all questions, 7: 13PM, F/U SBO, pt is stable, no abdominal pain, continue treatment, will F/U, 1:45PM, F/U SBO, Ng tube 350ml pt is stable, no abdominal pain, passed some gas, continue treatment, repeat KUB in morning, will F/U, 03/31/2022 11: 58 AM, F/U SBO, failure conservative treatment, Plan, I recommend to do exploratory laparotomy, possible bowel resection or stoma, D/W benefits, risks and alternatives of the surgery with pt and his son Shaan, the risks - infection, bleeding, sepsis, injury bowel or other organs, incisional hernia, [place], DVT, stroke, or , pt and his son understood, they agree with surgery, pt signed informed consent, I answered all questions, 04/03/2022 11:58AM F/U S/P exp lap, lysis of adhesion, POD 3 doing fine, passed gas, remove NG tube, clear diet, repeat labs in morning, will F/U, OOB 04/04/2022 12:02PM F/U S/P exp lap, lysis of adhesion, POD 4 doing fine, tolerated clear diet, passed gas, and BM X 2 soft diet, discharge home tomorrow, post care instruction was given, Admission and Anticipated Discharge Date Admission Date: March 28, 2022 Subjective pt feeling improved, did have flatus, no bm yet, surgery removed ngt and will stop IVF as has clears and ice chips, pain controlled 04/04/2022 11:58AM Dr. Leung F/U F/U S/P exp lap, lysis of adhesion, POD 4 doing fine, tolerated clear diet, no nausea, no vomiting, passed BM X2, no feer, Review of Systems Constitutional: as per Subjective / HPI Eyes: as per Subjective / HPI Respiratory: as per Subjective / HPI lung cancer Cardiovascular: as per Subjective / HPI Gastrointestinal: laparoscopic repair bilateral inguinal hernia, 2 years ago Musculoskeletal: as per Subjective / HPI Neurologic: as per Subjective / HPI Psychiatric: as per Subjective / HPI Endocrine: as per Subjective / HPI Hematologic / Lymphatic: as per Subjective / HPI Physical Exam Constitutional: WD/WN, vitals as above Eyes: PERRL, conjunctivae normal, anicteric sclerae Neck: trachea midline, no thyromegaly Respiratory: normal respiratory effort, lungs clear to auscultation Cardiovascular: RRR, no murmur, no edema Gastrointestinal (Abdomen): soft, NT, ND, the incision heal well, no redness, BS +, Musculoskeletal: no cyanosis or clubbing, extremities motor strength 5/5 Neurologic: patellar DTR's 2+ bilat, sensation intact Psychiatric: A+Ox3, euthymic affect Results & Data ([facility]) Vital Signs (Past 12 Hours) Vital Signs Temp Pulse Resp BP Pulse Ox O2 Del Method 04/04/22 07:55 36.7 C 73 14 144/89 H 92 Room Air 04/04/22 07:31 Room Air
[2022-04-04] MEDS: OLMESARTAN MEDOXOMIL 20 MG TAB PO SCH (16:48)
--- NOTE | 2022-04-04 20:31 | Hospitalist Progress Note ---
Date of Service April 04, 2022 Assessment & Plan (1) Small bowel obstruction: Plan: s/p ex lap with LUCÍA - 03/31/22 doing well from surgery standpoint diet advancement to low fiber today potential d/c tomorrow per surgery? replace low mag repeat labs am add incentive moises for decreased BS on lung exam (2) Lung metastases: Plan: patient undergoing targeted immunotherapy monthly. Last treatment March 20- in [place] ([facility]). f/u with them upon return home to [place] (3) Melanoma: Plan: with mets as above (4) Port-A-Cath in place: (5) Hypomagnesemia: Plan: replace IV mag repeat mag level am (6) Essential hypertension: Plan: resume ARB hold BB hold HCTZ Plan DVT proph - lovenox 40mg daily significant other updated at bedside today Admission and Anticipated Discharge Date Admission Date: March 28, 2022 Subjective patient feeling well sitting in chair during the visit moving bowels minimal abd pain no nausea or emesis tolerating clears he asks when he can return to [place] (lives in [place]) Review of Systems Review of Systems: gen - feeling well cv - no chest pain pulm - no cough or dyspnea GI - no nausea Physical Exam Physical Exam: gen - NAD, looks good, sitting in chair comfortably mouth - MMM neck - no JVD heart - RRR, s1 s2 lungs - decreased BS bases, CTA b/l otherwise abd - softly distended, BS+, NT, large dressing in place, no HSM ext - pulses 2+ b/l, no edema psych - a/o x 3 Results & Data Results & Data ([facility]) Vital Signs (Past 12 Hours) Vital Signs Temp Pulse Resp BP Pulse Ox O2 Del Method 04/04/22 15:08 36.5 C 78 18 145/89 H 94 Room Air Laboratory Results Laboratory Results - last 24 hr 04/04/22 04/04/22 04/04/22 08:29 08:29 08:29 WBC 6.86 RBC 3.28 L Hgb 10.5 L Hct 31.8 L MCV 97.0 MCH 32.0 MCHC 33.0 RDW Std Deviation 46.3 RDW Coeff of Arleth 12.9 Plt Count 224 MPV 9.0 L Immature Gran % (Auto) 0.6 Neut % (Auto) 70.9 Lymph % (Auto) 14.7 Shannon % (Auto) 8.2 Eos % (Auto) 5.2 Baso % (Auto) 0.4 Neut # (Auto) 4.86 Lymph # (Auto) 1.01 L Shannon # (Auto) 0.56 Eos # (Auto) 0.36 Baso # (Auto) 0.03 Immature Gran # (Auto) 0.04 H Sodium 135 L Potassium 3.6 Chloride 103 Carbon Dioxide 27 Anion Gap 5 BUN 11 Creatinine 0.93 Est Cr Clr Drug Dosing 67.6 Est GFR ( Amer) 90.8 Est GFR (Non-Af Amer) 78.4 BUN/Creatinine Ratio 11.8 Glucose 81 Calcium 8.4 L Magnesium 1.6 L Total Bilirubin 0.5 AST 27 ALT 21 Alkaline Phosphatase 57 Total Protein 5.4 L Albumin 3.0 L Globulin 2.4 L Albumin/Globulin Ratio 1.3 PG Care Time/CCT Total # of Minutes Spent Total Time Spent with Patient: Total time spent is greater than 50% in coordination of care (as documented) at patient's floor/unit and/or counseling patient: Coding Level of Care Code 26310 Subseq Hosp Care Lvl 2 Diagnoses Small bowel obstruction K56.609 Lung metastases C78.00 Melanoma C43.9 Port-A-Cath in place Z95.828 Hypomagnesemia E83.42 Essential hypertension I10
[2022-04-05] MEDS: OLMESARTAN MEDOXOMIL 20 MG TAB PO SCH (08:00)
[2022-04-05] MEDS: LEVOTHYROXINE SODIUM 25 MCG TABLET PO SCH (08:00)
[2022-04-05] MEDS ORDERED: OLMESARTAN MEDOXOMIL 20 MG TAB PO ONE (09:00)
[2022-04-05 09:51] LABS: BUN Creatinine Ratio 9.8 (10-20); Calcium 8.3 mg/dl (8.5-10.1); Creatinine Clr Calc Pharmacy 61.6 ml/min; Est GFR (African American) 81.2 ml/min; Est GFR (Non-African American) 70.1 ml/min; Magnesium 1.9 mg/dl (1.7-2.4); Potassium 3.7 mmol/L (3.5-5.1)
--- NOTE | 2022-04-05 10:50 | Surgery Progress Note ---
Date of Service April 05, 2022 Assessment & Plan (1) Small bowel obstruction: Plan: pt is a 76 year-old male who presents with one day history abdominal pain, IMP: SBO, Plan, agree with medicine team admit pt to hospital no emergent surgery indication now, conservative treatment, NPO, IV fluid, control pain, repeat labs and KUB in morning, will F/U, pt agrees with the plan, I answered all questions, 7: 13PM, F/U SBO, pt is stable, no abdominal pain, continue treatment, will F/U, 1:45PM, F/U SBO, Ng tube 350ml pt is stable, no abdominal pain, passed some gas, continue treatment, repeat KUB in morning, will F/U, 03/31/2022 11: 58 AM, F/U SBO, failure conservative treatment, Plan, I recommend to do exploratory laparotomy, possible bowel resection or stoma, D/W benefits, risks and alternatives of the surgery with pt and his son Shaan, the risks - infection, bleeding, sepsis, injury bowel or other organs, incisional hernia, [place], DVT, stroke, or , pt and his son understood, they agree with surgery, pt signed informed consent, I answered all questions, 04/03/2022 11:58AM F/U S/P exp lap, lysis of adhesion, POD 3 doing fine, passed gas, remove NG tube, clear diet, repeat labs in morning, will F/U, OOB 04/04/2022 12:02PM F/U S/P exp lap, lysis of adhesion, POD 4 doing fine, tolerated clear diet, passed gas, and BM X 2 soft diet, discharge home tomorrow, post care instruction was given, 04/05/2022 10: 47AM F/U S/P exp lap, lysis of adhesion, POD 5 doing fine, tolerated diet, passed gas, and BM X 1 pt can discharged today, he can return [place] today, F/U his PCP 3 weeks for remove staplers, F/U sc [email or web address], sign off today, Thanks, Admission and Anticipated Discharge Date Admission Date: March 28, 2022 Subjective patient feeling well sitting in chair during the visit moving bowels minimal abd pain no nausea or emesis tolerating clears he asks when he can return to [place] (lives in [place]) 04/05/2022 10:43, Dr. macedo doing fine, passed BM today, tolerated diet, no abdominal pain, no fever, pt can be discharged today, he can return to [place] today, Review of Systems Constitutional: as per Subjective / HPI Eyes: as per Subjective / HPI Respiratory: as per Subjective / HPI lung cancer Cardiovascular: as per Subjective / HPI Gastrointestinal: laparoscopic repair bilateral inguinal hernia, 2 years ago Musculoskeletal: as per Subjective / HPI Neurologic: as per Subjective / HPI Psychiatric: as per Subjective / HPI Endocrine: as per Subjective / HPI Hematologic / Lymphatic: as per Subjective / HPI Physical Exam Constitutional: WD/WN, vitals as above Eyes: PERRL, conjunctivae normal, anicteric sclerae Neck: trachea midline, no thyromegaly Respiratory: normal respiratory effort, lungs clear to auscultation Cardiovascular: RRR, no murmur, no edema Gastrointestinal (Abdomen): soft, NT, ND, incision heals well, no redness, some skin bruise on skin caused by allergic to tape, Musculoskeletal: no cyanosis or clubbing, extremities motor strength 5/5 Neurologic: patellar DTR's 2+ bilat, sensation intact Psychiatric: A+Ox3, euthymic affect Results & Data ([facility]) Vital Signs (Past 12 Hours) Vital Signs Temp Pulse Resp BP BP Pulse Ox O2 Del Method 04/05/22 07:29 36.5 C 67 16 156/94 H 97 Room Air 04/04/22 23:18 36.0 C L 76 20 166/95 H 94 Room Air
[2022-04-05] MEDS: ENOXAPARIN INJ 40 MG/0.4 ML SYR SQ SCH (12:04)
[2022-04-05] MEDS: PANTOprazole 40 MG in SYRINGE 0 ML IV SCH (12:04)
[2022-04-05] MEDS ORDERED: hydroCHLOROthiazide 25 MG TAB PO STA (12:20)
--- NOTE | 2022-04-05 13:28 | Discharge Summary ---
Date of Service date of admission - March 28, 2022 date of discharge - April 05, 2022 Admission HPI Per Admitting Provider Eliezer is a 76-year-old male with a past medical history of lung cancer who presented to the emergency department for nausea/vomiting/abdominal pain. He lives in [place], was visiting locally for a high school reunion. Developed repeated episodes of pain and nonbloody emesis without diarrhea, and presented for evaluation. Is found to have a bowel obstruction. 2pm yesterday ab pain which progressively worsened overnight. THis am started vomiting several times, light yellow no blood. Maybe a little pink with last wretching. Pain is improved with morphine. Pain in the worse in the central abdomen, no history of SBO or similar symptoms. 3/10 now, 7-8/10 and sharp coming in. No flatus, feels like he wants to pass gas but cant and stomach is stretched but nothing is moving. 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 Started immunotherapy avivo last June. Last treatment was March 20-. Gets monthly. No radiation hx. Hx HTN, hypothyroid, GERD Surgical history - 2 abdominal hernias repaired surgically. Knee R TKA. L Foot surgery. Laminectomy 1994 for back pain. No hx of katrin/appy. CT-A/P: IMPRESSION: Findings are compatible with small bowel obstruction. Bowel gas and some colonic gas remains. No evidence of perforation. Proximal and distal transition points are noted. Principal Diagnosis SBO s/p exploratory laparotomy with lysis of adhesions Discharge Exam gen - NAD, looks good, sitting in chair comfortably mouth - MMM neck - no JVD heart - RRR, s1 s2 lungs - decreased BS bases, CTA b/l otherwise abd - soft, minimal distension, BS+, NT, gloria clean abdominal wall, no HSM ext - pulses 2+ b/l, no edema psych - a/o x 3 skin - abdominal wall - gloria intact, clean, no erythema or drainage; there are at least 2 blistered areas on the abdominal wall as a result of his dressings; erythematous papules on his back c/w contact dermatitis Discharge Data Allergies Allergy/AdvReac Type Severity Reaction Status Date / Time No Known Allergies Allergy Unverified 03/28/22 07:51 Consultations General Surgery - Malick Mbcride MD Procedures Performed Operation Date: 03/31/22 15:15 Actual Procedures Exploratory Laparotomy, Lysis of Adhesions - Malick Leung MD FINDINGS: Scar across the adhesion caused a small bowel obstruction. COMPLICATIONS: None. INDICATIONS FOR THE PROCEDURE: This is a 76-year-old gentleman who was admitted to the hospital for small bowel obstruction. The patient did the conservative treatment, which was a failure and still patient had not passed any gas or bowel movement over 4 days. I recommended to do a exploratory laparotomy, possible bowel resection, possible stoma. I did talk to the patient about the benefit, risk, alternate procedure. I indicated the risks may include, but not limited to, such as bleeding, infection, sepsis, injury to other organs, incisional hernia recurrence, small-bowel obstruction, myocardial infarction, DVT, stroke, even . The patient and patient's son, Shaan, who understands. The patient signed informed consent and I answered all questions. DETAILS OF PROCEDURE: After we identified the patient and verified the p rocedure, we brought the patient to the OR, put the patient in the supine position on the OR table. The patient received SCD on bilateral legs to prevent DVT. Also, patient received 2 grams of Ancef IV for prophylactic antibiotic. The patient received general anesthesia without difficulty. Also, patient received a Johnson catheter insertion. The abdomen was prepped and draped in routine sterile fashion. After timeout, I made a midline incision about 10 cm length, dissection through subcutaneous layer and reached the fascial layer, opened the fascial layer, opened peritoneum and get in the abdomen. There was some free fluid around the abdomen. We suctioned the fluid out and then we found the patient had a small bowel obstruction. We mobilized the small bowel, found the patient had the one scar across a small bowel obstruction. I released the scar and immediately the distal small bowel is patent and also the small bowel blood circulation is good, pink. At this moment, once we released these adhesions and rechecked, no other bowel obstruction. Hemostasis obtained, then I closed the fascial layer by using #1 PDS continuous running, closed the skin by using 2-0 Vicryl continuous running, closed skin by using staple. Then, we put the dressing on. The patient tolerated the procedure well. All instrument, needle and sponge counts were correct x2 at the end of the case. The patient was transferred to recovery room in stable condition. After the procedure, I did talk to the patient about the OR finding and the procedure we did, the patient understands. Ordered Studies 03/28/22 04:45 CT abd pelvis wo con - FINDINGS: Lower chest: Bibasilar atelectasis versus scarring is seen. Atherosclerotic disease is seen. Liver: Calcified granulomata are seen. Gallbladder and biliary tree: No calcified gallstones. Normal caliber wall. No intra- or extrahepatic biliary ductal dilation. Pancreas: Unremarkable, no focal lesions. Spleen: Calcifications are noted in the spleen compatible with prior granulomatous disease. Adrenals: Unremarkable. Kidneys and ureters: Unremarkable. Bladder: Unremarkable. Reproductive organs: Prostatic calcifications are seen which may represent prior hemorrhage or granulomatous disease. Bowel: Diverticulosis is seen without evidence of diverticulitis. Of stool contents remain. A hiatal hernia is seen. There are a few loops of dilated small bowel with wall thickening and surrounding fat stranding and vascular engorgement. Proximal and distal transition points are seen in the left lower quadrant and right lower quadrant, respectively, without a vascular swirl. The appendix is normal. Lymph nodes Retroperitoneal: Unremarkable. Pelvic: Unremarkable. Mesenteric: Unremarkable. Peritoneum: Normal. Vessels: Atherosclerotic calcifications are seen. Abdominal wall: A fat-containing umbilical hernia is seen. Metallic densities are seen throughout the abdomen. Bones: Degenerative changes in the visualized spine. IMPRESSION: Findings are compatible with small bowel obstruction. Bowel gas and some colonic gas remains. No evidence of perforation. Proximal and distal transition points are noted. Abnormal labs during the hospitalization: Abnormal Labs 03/28/22 03/28/22 03/29/22 05:10 05:10 12:34 RBC 3.85 L 3.74 L Hgb 12.4 L 12.1 L Hct 36.9 L 36.0 L RDW Std Deviation 46.8 H 47.8 H MPV 8.9 L 9.3 L Neut # (Auto) 8.45 H 8.24 H Lymph # (Auto) 0.74 L 0.88 L Immature Gran # (Auto) 0.03 H 0.04 H Sodium 135 L BUN 27 H BUN/Creatinine Ratio 20.1 H Glucose 126 H Calcium Magnesium Total Protein Albumin Globulin TSH 03/29/22 03/29/22 03/30/22 12:34 12:34 07:29 RBC 3.76 L Hgb 12.1 L Hct 36.6 L RDW Std Deviation 46.9 H MPV 9.2 L Neut # (Auto) Lymph # (Auto) Immature Gran # (Auto) Sodium 135 L BUN BUN/Creatinine Ratio Glucose Calcium Magnesium Total Protein Albumin Globulin TSH 10.632 H 03/30/22 03/31/22 04/01/22 07:29 07:30 05:51 RBC 3.80 L 3.25 L Hgb 12.3 L 10.4 L Hct 35.8 L 31.1 L RDW Std Deviation MPV 9.2 L 9.1 L Neut # (Auto) Lymph # (Auto) 0.48 L Immature Gran # (Auto) Sodium 135 L BUN BUN/Creatinine Ratio Glucose Calcium Magnesium Total Protein Albumin Globulin TSH 04/01/22 04/04/22 04/04/22 05:51 08:29 08:29 RBC 3.28 L Hgb 10.5 L Hct 31.8 L RDW Std Deviation MPV 9.0 L Neut # (Auto) Lymph # (Auto) 1.01 L Immature Gran # (Auto) 0.04 H Sodium 135 L 135 L BUN BUN/Creatinine Ratio 20.2 H Glucose 147 H Calcium 8.0 L 8.4 L Magnesium Total Protein 5.3 L 5.4 L Albumin 2.9 L 3.0 L Globulin 2.4 L 2.4 L TSH 04/04/22 04/05/22 08:29 09:01 RBC Hgb Hct RDW Std Deviation MPV Neut # (Auto) Lymph # (Auto) Immature Gran # (Auto) Sodium BUN BUN/Creatinine Ratio 9.8 L Glucose 123 H Calcium 8.3 L Magnesium 1.6 L Total Protein Albumin Globulin TSH Hospital Course (1) Small bowel obstruction: Patient presented with SBO. NG tube was placed, IV fluids started, and bowel rest was employed. Unfortunately with conservative measures his SBO did not resolve. He was seen in consult by general surgery, Dr aMlick Leung, who advised exploratory surgery. On 03/31/22 he underwent exploratory surgery with a large adhesion found as the cause of the SBO. He underwent lysis of the adhesion with resolution of the SBO. Post-op he did well from a surgery standpoint. On 04/03/22 his NG tube was removed and a clear liquid diet was started. This was gradually advanced to low fiber diet over the next 48 hours; he tolerated such. He had passage of flatus and stools prior to discharge. He had no nausea/emesis prior to discharge. Electrolytes were placed as necessary throughout his stay. Surgical incision/gloria were clean and intact at time of discharge without signs of wound infection. Surgical discharge instructions were given regarding restrictions in lifting, activity, etc. Recommend low fiber diet for 2 weeks post-discharge. Since the patient is returning to his home state of [place] he will need the gloria removed in [place] in about 3 weeks. This can be done by his PCP or he can be referred to a general surgeon. (2) Lung metastases: Patient undergoing targeted immunotherapy monthly. Last treatment March 20- in [place] ([facility]). f/u with them upon return home to [place]. (3) Melanoma: with mets as above (4) Port-A-Cath in place: (5) Hypomagnesemia: replaced and resolved prior to discharge (6) Essential hypertension: At discharge he will resume olmesartan 40mg daily, nebivolol 10mg daily, and HCTZ 12.5mg daily. (7) Contact dermatitis: Back. Triamcinolone cream 0.1% TID in thin amounts to rash on back x 7 days. (8) Blister (nonthermal) of abdominal wall, initial encounter: Bactroban ointment BID until healed. (9) DVT prophylaxis: In light of his recent abdominal surgery, prolonged hospitalization, anticipated long car ride back to [place] from [place], and his active metastatic melanoma I strongly advised chemical DVT prophylaxis for 30 days post-discharge. XARELTO 10mg po daily x 30 days prescribed; instructions on its use given. He was asked to STOP his celebrex while on the Xarelto and to HOLD any [id number] NSAID use while on Xarelto. A small prescription of norco prn was given at discharge for any post-op pain at home. Total Time Total Time Spent Total Time Spent (In Minutes): 60 Discharge Plan Discharge Items Patient Disposition: Home - Self-Care Reason For Visit: SBO (Small Bowel Obstruction) Discharge Diagnosis: Small bowel obstruction. Exploratory laparotomy surgery needed; lysis of adhesion (internal scar tissue). Dr Malick Leung, General surgery, on 03/31/22. Activity: As commented below Lifting: No more than 10 pounds Lifting Comment: for 4 weeks Bathing: May shower/bathe in 3 days Sexual Activity: After two weeks Exercise/Sports: Rest today Driving/Machine Use: no driving while taking pain medicine, Non-emergency contact: Primary Care Provider and Surgeon Call non-emergency contact if: you have any medication questions, your symptoms worsen, your pain is not controlled, your pain is worsening, your pain is unusual for you, your pain is concerning for you, you have a fever, your wound has increased redness, your wound has increased drainage and your wound pain has increased Follow-up/Referrals: Travis Ybarra MD [Other] (within 5 days of returning home to [place]) Diet: Low Fiber Addtl Attending Provider Instructions: Ruben Granado were admitted to [facility] for a "small bowel obstruction." This is an intestinal blockage in the small intestine. It is typically caused by adhesions which is scar tissue from prior abdominal operations. Unfortunately it did not resolve with conservative measures and you ultimately needed surgery to resolve the problem. Dr Leung performed exploratory surgery on 03/31, and indeed an adhesion was found causing the blocked bowel. The adhesion was lysed (Cut), and the blockage resolved. Following your surgery you did well from a surgical and medical standpoint. You started to pass gas and stool from your rectum, and a diet was resumed. The diet was advanced to low fiber diet and you are tolerating this well. Recommendations - 1. keep the abdominal dressings on for 2 additional days 2. OK to shower on 04/06/22 but no tub baths 3. you will need the gloria removed in 3 weeks by your family doctor OR, your family doctor can refer you to a general surgeon in [place] to remove the gloria 4. for severe abdominal pain/discomfort may take prescription pain killer medication -- hydrocodone/acetaminophen, 1 tablet every 8 hours as needed for pain * DO NOT DRIVE A CAR IF YOU TAKE THIS MEDICATION * DO NOT DRINK ALCOHOL IF YOU TAKE THIS MEDICATION * if you take hydrocodone it likely will cause constipation; thus, if you have to take it, please take [id number] miralax or other stool/constipation aid to keep the bowels moving * hydrocodone pain killer has TYLENOL in it; thus, if you take this prescription pain killer, do not take extra Tylenol at the same time * the hydrocodone could also make you sleepy 5. for the rash on your BACK - triamcinolone cream, apply in thin amounts 3 t imes a day for 7 days 6. for the blistered rash on your abdominal wall - use muporocin ointment TWICE A DAY to the rash; use this until the blisters are healed (probably about 7-10 days) 7. low fiber diet for 2 weeks (see handout), then resume normal diet thereafter 8. ok to resume ALL of your usual blood pressure medications on 04/06/22 9. having surgery, having cancer, and traveling a long distance by car all increase your chances of developing blood clots of the legs. While traveling back to [place] please stop every 60-90 minutes to take a short 5 minute walk and stretch your legs. Do this religiously until you arrive back in your hometown. 10. I have prescribed a low-dose blood thinner called XARELTO to lower your chances of having a blood clot over the next few weeks while you are recovering from your surgery. This is an oral blood thinner. Please take your first dose tomorrow AM, 04/06/22. I have called this blood thinner into the pharmacy for you. Take for 30 days. 11. While taking XARELTO for the next 30 days please do NOT take the following -- * CELEBREX * motrin * ibuprofen * naprosyn * alleve Follow-up - see your family doctor within 5 days of arrival home to [place] Return to any hospital if - * you have fevers over 100 degrees * you have shortness of breath * you have chest pains * you have severe swelling of your legs or painful legs * you have any concerns about your abdominal wound/gloria * you have worsening abdominal pain or vomiting * you have inability to have a stool * any other concerns It was our pleasure caring for you at [facility]! Safe travels home and best wishes for a speedy recovery, Dr Hurley Addtl Rn Home Care Provider Instructions: Medication Instructions: We are prescribing low-dose XARELTO. This is an anticoagulant or "blood thinner." Anticoagulants will thin your blood to help prevent clots in your legs and lungs. * You should take your medication exactly as directed. * Never skip a dose. * Never take a double dose. If you miss a dose, take it as soon as you remember. Call your Primary Care doctor if you experience any of the following: * Swelling or Pain in your leg * Sudden, continuous pain deep in a muscle * Pain that worsens when you are active or when you stand still for a long time * Chest Pain * Sudden Shortness of Breath * Rapid or pounding heart beat * Fainting * Dizziness * Cough with blood or bloody sputum * Sweating more than normal * Bruises * Heavy or uncontrolled bleeding * Blood in your urine, stool or vomit * Black or tarry stools * Heavy nose bleeding Caring for Your Self at Home: * Avoid sitting, standing or lying down for long periods without moving your legs and feet * When traveling by car, stop to get out and move around at least once every 1-2 hours * On long airplane, train or bus rides, get up and move around when possible * If you can't get up, wiggle your toes and tighten your calves to keep your blood moving Follow Up: It is important for you to keep your follow up appointments with your medical provider. Pending Studies at Discharge: No Stand-Alone Forms: My [facility], Opioid Pain Management, Smoking Cessation Medications and DC Order Prescriptions: New triamcinolone acetonide 0.1 % Cream 1 applic EXT TID Qty: 45 0RF Rx Instructions: apply to rash on back in thin amounts TID x 7 days hydrocodone-acetaminophen 5-325 mg tablet 1 tab PO Q8H PRN (Reason: severe abdominal pain) Qty: 7 0RF mupirocin 2 % ointment 1 applic topical BID Qty: 22 0RF Rx Instructions: apply to blistered rash on abdominal wall twice daily until healed (7-10 days likely) Xarelto 10 mg tablet 10 mg PO DAILY Qty: 30 0RF Rx Instructions: start 04/06/22 Continued levothyroxine 25 mcg tablet 25 mcg PO DAILY esomeprazole magnesium [Nexium] 20 mg Capsule,Delayed Release(Dr/Ec) 20 mg PO DAILY olmesartan 40 mg tablet 40 mg PO DAILY hydrochlorothiazide 12.5 mg tablet 12.5 mg PO DAILY nebivolol 10 mg tablet 10 mg PO DAILY Discontinued mupirocin 2 % ointment 1 applic topical USEASDIRECTD PRN (Reason: Outbreak) Rx Instructions: Facial Rash as needed celecoxib 100 mg capsule 100 mg PO DAILY Discharge Orders: Discharge Order (Routine); Ordered 04/05/22 Ordered By: Crow Mariee/Other Patient Handouts: Small Bowel Obstruction, Low-Fiber Diet Admission Data Admit Date/Time: 03/28/22 08:59 Attending Provider: Crow Hurley Admit Provider: Lloyd Ji Primary Care Provider: PCP,NO Other Providers: Lloyd Ji ; Malick Leung Other Interventions: Discharge Summary Assessment (RN) Last Done: 04/05/22 13:10 Coding Level of Care Code D/C DAY MANAGEMENT >30 MINS Diagnoses Small bowel obstruction K56.609 Lung metastases C78.00 Melanoma C43.9 Port-A-Cath in place Z95.828 Hypomagnesemia E83.42 Essential hypertension I10 Contact dermatitis L25.9 Blister (nonthermal) of abdominal wall, initial encounter S30.821A DVT prophylaxis Z29.9
[2022-04-06] MEDS ORDERED: OLMESARTAN MEDOXOMIL 40 MG TAB PO SCH (09:00)
== END 2022-04-05 14:45 | disposition home or self-care (01) | DRG 336 ==
LOC: ED 04:28 → SUATTDRO 08:59 → EDINP 08:59 → 3W 15:34